=== PATIENT | female | born 1970 | race Two or more races ===

== ENCOUNTER 2020-06-24 08:11 | Outpatient (REF) | payer MEDICARE, MEDICAID, SELFPAY ==
--- NOTE | 2020-06-24 15:25 | MHC.AU.ANR ---
Adult Audiological Evaluation Date of Visit: 06/24/20 Reason for Appointment: Audiological evaluation due to concern for decreased hearing. Ms. Fermin states that she often has to ask for repetition, which frustrates her family. Does patient feel they have a hearing loss?: Yes If Yes, Which Ear?: Both Ears When Was Hearing Difficulty First Noticed?: one year ago Has hearing been tested previously?: No Hearing Handicap Inventory: HHIE SCORE: 8 Based on HHIE score, patient has: No perceived hearing handicap Medical History: Medical History: Headache, High Blood Pressure Medical History (Other): Gallbladder removed in 1992, TMJ Allergies: Penicillin Medication List: Lisinopril Otoscopy: Right Ear: Unremarkable Left Ear: Unremarkable Tympanometry: Tympanometry performed due to: To assess integrity of the middle ear system Right Ear: Normal Middle Ear System (Type A) Left Ear: Normal Middle Ear System (Type A) Hearing Evaluation: Transducer(s) Used: Insert Earphones, Bone Conduction Method: Conventional Audiometry Stimuli Used: Pure Tones Right Ear: Description of Hearing: Normal hearing from 250-8000 Hz. Left Ear: Description of Hearing: Normal hearing from 250-3000 Hz, dipping to a mild conductive hearing loss at 4000 Hz, and rising to normal hearing from 3443-4084 Hs. Air-conduction thresholds at 10-20 dBHL worse in the left ear than the right at 6505-5882 Hz. Speech Recognition Threshold (SRT): Method Used: Monitored Live Voice Stimuli Used: Spondee Words Right Ear: 10 dBHL Left Ear: 10 dBHL Word Discrimination: Method: Recorded Lists Word Lists Used: NU-6 Right Ear: 92% at 50 dBHL Left Ear: 92% at 50 dBHL Recommendations: Audiological re-evaluation in one year to monitor hearing due to asymmetry. Amplification is not warranted at this time. Diagnosis: Primary Diagnosis: H90.12 ConductiveHL, Unilateral Left Ear, W/Unrestricted Contralateral Services Performed: Services Performed: Comprehensive Audiological Evaluation (CPT 02120) Tympanometry (CPT 40366) Signature: Provider: Theresa Melgar, CCC-A
== END 2020-06-24 08:12 | disposition home or self-care (01) ==
LOC: HO.SH 08:11
PROVIDERS: Visit Provider Internal Medicine
DX: H90.12 Conductive hearing loss, unilateral, left ear, with unrestricted hearing on the contralateral side (principal)
CPT/HCPCS: 92557; 92567

== ENCOUNTER 2020-07-02 22:05 | Emergency (ER) | payer MEDICARE, MEDICAID, SELFPAY ==
--- NOTE | 2020-07-02 | ECG_ITS ---
Test Reason : CHEST PAIN Blood Pressure : / mmHG Vent. Rate : 095 BPM Atrial Rate : 095 BPM P-R Int : 130 ms QRS Dur : 094 ms QT Int : 376 ms P-R-T Axes : 048 023 087 degrees QTc Int : 472 ms Normal sinus rhythm Nonspecific ST abnormality Abnormal ECG When compared with ECG of 06-NOV-2018 10:36, Nonspecific T wave abnormality, improved in Anterolateral leads Referred By: Generic ED Physician Electronically Signed By:RAMO WEBB
[2020-07-02 22:08] VITALS: BP 176/103; PULSE 91; RESP 18; TEMP 36.5; O2SAT 99; BMI 27.3
== END 2020-07-02 23:55 | disposition left against medical advice (07) ==
PROVIDERS: Emergency Provider Emergency Medicine; PCP Internal Medicine
DX: R07.9 Chest pain, unspecified (principal)
CPT/HCPCS: 93005; 99283

== ENCOUNTER 2020-08-03 09:30 | Outpatient (REF) | payer MEDICARE, MEDICAID, SELFPAY ==
--- NOTE | ~2020-08-03 | XR_ITS ---
EXAMINATION: XR CERVICAL SPINE CLINICAL INFORMATION: Cervical spondylosis COMPARISON: None TECHNIQUE: 5 views of the cervical spine were obtained. FINDINGS: There are no prevertebral soft tissue or bony abnormalities demonstrated. No compression fractures or subluxations are identified. Alignment is maintained at the atlanto-axial articulation. The disc spaces are preserved. The neural foramina are patent bilaterally No endplate changes are seen. The prevertebral soft tissues are normal. The foramina are patent. XR/XR cervical spine 4V IMPRESSION: Unremarkable cervical spine exam.
== END 2020-08-03 09:31 | disposition home or self-care (01) ==
LOC: HO.XRAY 09:30
PROVIDERS: PCP Internal Medicine; Visit Provider Psychiatry & Neurology Neurology
DX: M47.812 Spondylosis without myelopathy or radiculopathy, cervical region (principal)
CPT/HCPCS: 72050

== ENCOUNTER 2020-08-05 09:08 | Outpatient (REF) | payer MEDICARE, MEDICAID, SELFPAY ==
--- NOTE | ~2020-08-05 | MM_ITS ---
EXAMINATION: MM SCREENING DIGITAL BREAST TOMOSYNTHESIS, BILATERAL CLINICAL INFORMATION: Screening. Asymptomatic. The lifetime risk of breast cancer based on the Tyrer-Cuzick Model is 5.3%. COMPARISON: Mammography: February 04, 2019 and studies dating back to June 26, 2013 TECHNIQUE: Digital breast tomosynthesis is performed in both the craniocaudal and mediolateral oblique views along with computer-aided detection (CAD). Synthesized 2D images are generated from the tomosynthesis. FINDINGS: There are scattered areas of fibroglandular density (ACR BI-RADS breast composition Category b). There are no significant masses, abnormal calcifications, or other abnormalities. MM/MM tomosynthesis screening BI IMPRESSION: There are no significant changes from prior study. ASSESSMENT: BI-RADS 1: Negative RECOMMENDATION: Routine annual mammography screening. This patient's information was entered into a reminder system with a target due date for their next mammogram.
== END 2020-08-05 09:09 | disposition home or self-care (01) ==
LOC: HO.MAMMO 09:08
PROVIDERS: Visit Provider Internal Medicine
DX: Z12.31 Encounter for screening mammogram for malignant neoplasm of breast (principal)
CPT/HCPCS: 77063; 77067

== ENCOUNTER 2020-12-24 09:29 | Emergency (ER) | payer MEDICARE, MEDICAID, SELFPAY ==
--- NOTE | ~2020-12-24 | CT_ITS ---
EXAMINATION: CT ABDOMEN AND PELVIS WITHOUT CONTRAST CLINICAL INFORMATION: Hematuria with bilateral flank pain COMPARISON: March 26, 2013 TECHNIQUE: Multidetector volumetric imaging was performed from the superior aspect of the liver through the pubic symphysis. Sagittal and coronal reformatted images were obtained on the technologist's workstation. This CT examination was performed using dose optimization techniques as appropriate, variously including the following: *Automated exposure control *Adjustment of mA and/or kV according to patient size (this includes techniques or standardized protocols for targeted exams where dose is matched to indication/reason for exam; i.e. extremities or head) *Use of iterative reconstruction technique DLP: 506 mGy-cm FINDINGS: LUNG BASES: The visualized lung bases are unremarkable. No pleural or pericardial effusion. LIVER, GALLBLADDER, AND BILIARY TREE: The liver is normal in size, shape, and attenuation. No focal hepatic lesion or biliary ductal dilatation is present. Gallbladder is not visualized and may be surgically absent. PANCREAS: Unremarkable. SPLEEN: Unremarkable. ADRENAL GLANDS: Unremarkable. KIDNEYS AND URETERS: The kidneys are normal in size, shape, and attenuation. No hydronephrosis, hydroureter, or calculi seen. No perinephric stranding. BLADDER: Unremarkable. GASTROINTESTINAL TRACT: No free air or free fluid is identified. No dilated loops of large or small bowel. No pericolonic inflammatory change. The appendix is visualized and appears unremarkable. ABDOMINAL WALL: No significant hernia is appreciated. LYMPH NODES: No lymphadenopathy appreciated. VASCULAR: Unremarkable. PELVIC VISCERA: Unremarkable. OSSEOUS STRUCTURES: No suspicious destructive bony lesion identified. CT/CT abdomen pelvis wo con IMPRESSION: No evidence of obstructive uropathy. No evidence of ileus or obstruction. No free air or free fluid.
[2020-12-24 09:39] VITALS: BP 151/92; PULSE 75; RESP 19; TEMP 36.6; O2SAT 98; BMI 26.4
[2020-12-24 10:40] VITALS: BP 129/83; PULSE 68; RESP 15; TEMP 36.8; O2SAT 98
--- NOTE | 2020-12-24 10:54 | ED_ITS ---
HPI - Female Genitourinary General Chief complaint: Urogenital-Female Stated complaint: blood in urine Time Seen by Provider: 12/24/20 10:45 Source: patient Limitations: no limitations History of Present Illness HPI Narrative: 49-year-old female who presents emergency department for evaluation hematuria, dysuria and urinary frequency. She states the symptoms started on Monday (3 days prior to evaluation). She states that she has a bur francisca sensation when she urinates, she states she is urinating frequency, she states that after she urinates she feels like she has to urinate again. The patient states that she is also having suprapubic pressure pain which is constant and is 9/10 at its worst. She is having pain in her lower back bilaterally which he states is mild to moderate intensity. She has had associated nausea but no vomiting. She denied fever, chills, weakness, fatigue. The patient states that she had leftover ciprofloxacin from previous urine infection start taking this on Monday she is also taking Pyridium with no relief of her symptoms. Patient states she has had a kidney stone in the past as well. Related Data Previous Rx's Medication Instructions Recorded cephalexin 500 mg capsule 500 mg PO QID 7 Days #28 cap 12/24/20 metoclopramide HCl 10 mg tablet 10 mg PO Q6H PRN #14 tab 12/24/20 (Reglan) phenazopyridine 200 mg tablet 200 mg PO TID PRN 3 Days #9 tab 12/24/20 (Pyridium) Allergies Allergy/AdvReac Type Severity Reaction Status Date / Time Penicillins [PENICILLINS] Allergy Mild RASH Verified 07/02/20 22:13 doxycycline [DOXYCYCLINE] Allergy Unknown DIZZY Verified 07/02/20 22:13 Review of Systems Review of Systems: Yes all other systems are reviewed and are negative [facility] Past Medical History [facility] Narrative: Past medical history: She also has history of urinary tract infections. Social history: She denies tobacco use. She states she occasionally drinks alcohol. She denies drug use. Medical History delivery delivered Cholecystectomy planned HTN (hypertension) Hypothyroid Kidney stone Surgical History History of cholecystectomy Social History Social History Advance Directives: No Advance Directives Information Provided: Yes Patient : No Physical Exam Vital Signs: Vital Signs: Last Vital Signs Temp 98.2 F 12/24/20 10:40 Pulse 68 12/24/20 10:40 Resp 15 12/24/20 10:40 BP 129/83 12/24/20 10:40 Pulse Ox 98 12/24/20 10:40 Body Mass Index 26.4 Const: General: cooperative and no acute distress Orientation/consciousness: oriented to person and oriented to place Limitations: no limitations HENMT: Head: Yes normal to inspection, Yes normocephalic and Yes atraumatic Ears: external ears normal General nose exam: Normal external nose present Face and sinus: Yes normal facial exam Mouth: Normal oral and palatal mucosa present Throat: Yes posterior oropharynx normal Eyes: General: appearance normal, both eyes and all related structures Pupils: Equal, round and reactive pupils present Neck: Neck: Yes normal visual inspection, Yes no lymphadenopathy, Yes trachea midline and Yes supple Chest: Chest palpation & inspection: normal inspection of the chest and normal palpation of entire chest wall Resp: Effort & Inspection: normal respiratory effort and able to speak in complete sentences Auscultation: clear to auscultation bilaterally Cardio: Rate: regular rate Rhythm: regular rhythm Heart sounds: S1 normal heart sound present, S2 normal heart sound present and no murmurs GI: Inspection: Yes normal to inspection Palpation (GI): Soft to palpation, Tenderness to palpation present (GI) suprapubicly (Moderate) and no guarding Auscultation: normal bowel sounds : General: Yes CVA tenderness ([id number] bilateral) Back/Spine/Pelvis: Back: CVA tenderness ([id number] bilateral) Skin: General skin exam: no rashes or lesions noted Neuro: General: oriented to person and oriented to place Cranial nerves: Yes CN's II-XII intact bilaterally and Yes Equal, round and reactive pupils present Cognition (Neuro): normal cognition Motor exam (neuro): 5/5 motor strength present throughout Extrem: General: Yes normal to inspection Psych: Appearance: grossly normal Speech and movement: Normal speech and movement present Affect: normal affect Attitude: cooperative Thought process: Normal thought process present Thought content: Normal thought content present Course Course Course Narrative: 49-year-old female who presents emergency department for evaluation of 3 days of UTI like symptoms including frequency, urgency, dysuria and suprapubic pain. She is also having bilateral flank pain. The patient has a history kidney stones and UTIs in the past. She had leftover ciprofloxacin from previous infection start taking this on Monday and she is also taking Pyridium with no relief for symptoms. I ordered a CT scan of the abdomen pelvis without contrast and a urinalysis. Patient does not want any pain medications at this time. 1307: The patient's CT scan of the abdomen pelvis without IV contrast did not reveal a clear cause for the patient's back pain or hematuria. Urinalysis did reveal 3+ blood, 1+ protein, negative leukocyte esterase and positive nitrates. Microscopic revealed 14 RBCs, 4 WBCs trace bacteria. My impression is the patient has acute cystitis and the bacteria may be resistant to ciprofloxacin and I did discuss this with the patient. The patient was advised to stop her ciprofloxacin and she was started on Keflex (cephalexin) 500 mg pills, 1 pill 3 times a day for 7 days. She was given a dose here in the emergency department. She was also started on Pyridium 200 mg 3 times a day as needed for painful urination. She was discharged home with printed and verbal instructions. MDM - Female Genitourinary Lab Data Labs: Lab Results 12/24/20 Range/Units 11:00 Urine Color DK YELLOW Urine Appearance CLEAR Urine pH 6.0 (5.0-8.0) Ur Specific Nevis 1.010 (1.005-1.025) Urine Protein 1+ H (NEG-TRACE) MG/DL Urine Glucose (UA) NEG (NEG) MG/DL Urine Ketones NEG (NEG) MG/DL Urine Blood 3+ H (NEG) Urine Nitrite POS H (NEG) Ur Leukocyte Esterase NEG (NEG) Urine RBC 10-14 H (0) /HPF Urine WBC 1-4 (0-4) /HPF Ur Squamous Epith Cells TRACE /LPF Urine Bacteria TRACE /LPF Urine Mucus TRACE /LPF Discharge Plan Discharge Clinical Impression: Urinary tract infection Patient Disposition: Home, Self-Care Instructions: Urinary Tract Infection in Women (ED) Additional Instructions: Stop taking your ciprofloxacin Take Keflex (cephalexin) 500 mg pills, 1 pill 4 times a day for 7 days. Also take Pyridium 200 mg pills, 1 pill 3 times a day as needed for painful urination. Take ibuprofen 200 mg pills, 3 pills every 6 hours as needed for pain. Take Tylenol (acetaminophen) 500 mg pills, 2 pills every 4 to 6 hours as needed for pain. Follow-up with your doctor in 2 days. Please return to the emergency department if your symptoms get worse or if you develop any symptoms that are concerning to you. Prescriptions: New cephalexin 500 mg capsule 500 mg PO QID 7 Days Qty: 28 RF: 0 metoclopramide HCl [Reglan] 10 mg tablet 10 mg PO Q6H PRN (Reason: nausea and vomiting) Qty: 14 RF: 0 phenazopyridine [Pyridium] 200 mg tablet 200 mg PO TID PRN (Reason: Burning with urination) 3 Days Qty: 9 RF: 0
[2020-12-24 11:12] LABS: Appearance Urine CLEAR; Color Urine DK YELLOW; Glucose Urine UA NEG (NEG); Leukocyte Esterase Urine NEG (NEG); Nitrite Urine POS (NEG); UACC Culture Trigger YES; Urine Blood 3+ (NEG); Urine Ketones NEG (NEG); Urine Protein 1+ MG/DL (NEG-TRACE)
[2020-12-24 11:36] LABS: Mucus Urine TRACE /LPF; Squamous Epithelial Cell Urine TRACE /LPF
[2020-12-24 11:37] LABS: Bacteria Urine TRACE /LPF
[2020-12-24] MEDS: cephALEXin 500 MG CAPSULE PO (13:22)
--- NOTE | 2020-12-24 13:48 | PC.NURSE ---
Elena presented to the ED via triage from home for evaluation of urinary frequency, urgency, dysuria and hematuria. She denied fevers/chills/ Denies nausea/vomiting. no chest pain. no difficulty breathing. Labs and urine were obtained and pt had CT performed in ED. Pt DiC'd at this time. She was aware that she was discharged however she did not wait in the ED until she was given DC instructions.
== END 2020-12-24 13:48 | disposition home or self-care (01) ==
PROVIDERS: Emergency Provider Emergency Medicine Emergency Medical Services; PCP Internal Medicine
DX: N39.0 Urinary tract infection, site not specified (principal); I10 Essential (primary) hypertension; Z87.442 Personal history of urinary calculi
CPT/HCPCS: 74176; 81001; 87086; 99284

== ENCOUNTER 2021-08-06 09:23 | Outpatient (REF) | payer MEDICARE, MEDICAID, SELFPAY ==
--- NOTE | ~2021-08-06 | MM_ITS ---
EXAMINATION: MM SCREENING DIGITAL BREAST TOMOSYNTHESIS, BILATERAL CLINICAL INFORMATION: Screening. Asymptomatic. The lifetime risk of breast cancer based on the Tyrer-Cuzick Model is 7%. COMPARISON: Mammography: 08/05/2020, 02/04/2019, 01/11/2018 TECHNIQUE: Digital breast tomosynthesis is performed in both the craniocaudal and mediolateral oblique views along with computer-aided detection (CAD). Synthesized 2D images are generated from the tomosynthesis. FINDINGS: There are scattered areas of fibroglandular density (ACR BI-RADS breast composition Category b). There are no significant masses, abnormal calcifications, or other abnormalities. Parenchymal pattern is similar to prior studies. The axilla and skin contours are unremarkable. MM/MM tomosynthesis screening BI IMPRESSION: No mammographic evidence of malignancy. ASSESSMENT: BI-RADS 1: Negative RECOMMENDATION: Routine annual mammography screening. This patient's information was entered into a reminder system with a target due date for their next mammogram.
== END 2021-08-06 09:24 | disposition home or self-care (01) ==
LOC: HO.MAMMO 09:23
PROVIDERS: PCP Internal Medicine; Visit Provider Internal Medicine
DX: Z12.31 Encounter for screening mammogram for malignant neoplasm of breast (principal)
CPT/HCPCS: 77063; 77067

== ENCOUNTER 2022-08-17 08:33 | Outpatient (REF) | payer OTHER, SELFPAY ==
--- NOTE | ~2022-08-17 | MM_ITS ---
EXAMINATION: MM SCREENING DIGITAL BREAST TOMOSYNTHESIS, BILATERAL CLINICAL INFORMATION: Screening. Asymptomatic. The lifetime risk of breast cancer based on the Tyrer-Cuzick Model is 7%. COMPARISON: Mammography: 08/06/2021, 08/05/2020, 02/04/2019 TECHNIQUE: Digital breast tomosynthesis is performed in both the craniocaudal and mediolateral oblique views along with computer-aided detection (CAD). Synthesized 2D images are generated from the tomosynthesis. Additional left CC view is provided. FINDINGS: There are scattered areas of fibroglandular density (ACR BI-RADS breast composition Category b). Parenchymal pattern is similar to prior studies. There is no developing density or architectural abnormality. The axilla and skin contours are unremarkable. No significant changes. There are no significant masses, abnormal calcifications, or other abnormalities. MM/MM tomosynthesis screening BI IMPRESSION: No mammographic evidence of malignancy. ASSESSMENT: BI-RADS 1: Negative RECOMMENDATION: Routine annual mammography screening. This patient's information was entered into a reminder system with a target due date for their next mammogram.
== END 2022-08-17 08:34 | disposition home or self-care (01) ==
LOC: HO.MAMMO 08:33
PROVIDERS: PCP Internal Medicine; Visit Provider Internal Medicine
DX: Z12.31 Encounter for screening mammogram for malignant neoplasm of breast (principal)
CPT/HCPCS: 77063; 77067

== ENCOUNTER 2022-11-07 06:14 | Emergency (ER) | payer OTHER, MEDICAID, SELFPAY ==
[2022-11-07 06:21] VITALS: BP 126/82; PULSE 87; RESP 18; TEMP 36.8; O2SAT 96; BMI 26.9
[2022-11-07 07:05] VITALS: BP 118/78; PULSE 78; RESP 14; O2SAT 96
[2022-11-07] MEDS: 0.9 % Sodium Chloride 1,000 ML 999 ML IV (07:27)
[2022-11-07 07:28] LABS: MANUAL DIFF FLAG NO
[2022-11-07 07:30] LABS: Basophils Percent Auto 0.2 % (0-2); Eosinophils Absolute Auto 0.1 X10*3/uL (0.0-0.4); Eosinophils Percent Auto 0.5 % (0-4); Hematocrit 43.2 % (37.0-47.0); Imm Gran Abs Auto 0.04 X10*3/uL (0.00-0.03); Imm Gran Pct Auto 0.3 % (0.0-0.4); Lymphocytes Absolute Auto 0.8 X10*3/uL (1.2-4.9); Lymphocytes Percent Auto 5.9 % (20-40); Mean Corpuscular HGB Conc 32.4 g/dl (31.0-35.0); Mean Corpuscular Hemoglobin 27.3 pg (27.0-33.0); Mean Corpuscular Volume 84.4 fL (80.0-98.0); Mean Platelet Volume 11.5 fL (9.4-12.3); Monocytes Absolute Auto 0.6 X10*3/uL (0.1-1.2); Monocytes Percent Auto 4.8 % (2-11); Neutrophils Absolute Auto 11.6 x10*3/uL (2.0-8.3); Neutrophils Percent Auto 88.3 % (45-73); Platelet Count 205 X10*3/uL (160-400); Red Blood Count 5.12 X10*6/uL (4.20-5.50); Red Cell Distribution Width 13.5 % (11.0-16.0); White Blood Count 13.2 X10*3/uL (4.8-10.8)
[2022-11-07] MEDS: diphenhydrAMINE HCL 50 MG/ML VIAL 25 MG IVPUSH (07:30)
[2022-11-07] MEDS: Famotidine/PF 20 MG/2 ML VIAL IVPUSH (07:30)
[2022-11-07] MEDS: Metoclopramide HCl 10 MG/2 ML VIAL IVPUSH (07:30)
--- NOTE | 2022-11-07 07:33 | ED.NAVMDI ---
HPI - Nausea/Vomiting/Diarrhea General Chief complaint: Nausea/Vomiting/Diarrhea Stated complaint: Diarrhea Time Seen by Provider: 11/07/22 07:15 Source: patient Mode of arrival: EMS Limitations: no limitations History of Present Illness HPI Narrative: 51-year-old female past medical history significant for hypertension cholecystectomy hypothyroidism presents emergency department complaining of diarrhea since last night. She denies any new foods or new medications she denies any recent antibiotic use she states her diarrhea is nonbloody and not black. She denies any fevers chills denies any nausea vomiting patient denies any falls or injuries she complains of some vague abdominal pain and states that she has not drank anything all night says she feels like her urine is concentrated. elicited complaint: diarrhea Pertinent past history: anorexia Related Data Previous Rx's Medication Instructions Recorded cephalexin 500 mg capsule 500 mg PO QID 7 days #28 caps 12/24/20 metoclopramide HCl 10 mg tablet 10 mg PO Q6H PRN nausea and 12/24/20 (Reglan) vomiting #14 tabs phenazopyridine 200 mg tablet 200 mg PO TID PRN Burning with 12/24/20 (Pyridium) urination 3 days #9 tabs Allergies Allergy/AdvReac Type Severity Reaction Status Date / Time Penicillins [PENICILLINS] Allergy Mild RASH Verified 07/02/20 22:13 doxycycline [DOXYCYCLINE] Allergy Unknown DIZZY Verified 07/02/20 22:13 Review of Systems Review of Systems: Review of systems: General: Patient denies any fever chills recent illness or falls Musculoskeletal: Denies back pain or body aches or other injuries HEENT: denies headache, runny nose, ear pain Respiratory: denies shortness of breath, cough Cardiovascular: no chest pain or palpitations : denies dysuria, frequency Abdomen: diarrheano nausea vomiting denies abdominal pain Extremities: no swelling, no pain Skin: no diaphoresis Yes all other systems are reviewed and are negative PMFSH Past Medical History Medical History delivery delivered Cholecystectomy planned HTN (hypertension) Hypothyroid Kidney stone Surgical History History of cholecystectomy Social History Social History Advance Directives: No Advance Directives Information Provided: Yes Physical Exam Vital Signs: Vital Signs: Last Vital Signs Temp 98.4 F 11/07/22 08:42 Pulse 76 11/07/22 08:42 Resp 16 11/07/22 08:42 BP 131/78 11/07/22 08:42 Pulse Ox 98 11/07/22 08:42 O2 Del Method Room Air 11/07/22 08:42 BMI result Body Mass Index 26.9 General: Well-appearing well-nourished in no signs of distress HEENT: Normocephalic atraumatic Neck: No signs of JVD, no masses no tenderness or lymphadenopathy Cardiovascular: Regular rate and rhythm Respiratory: Clear to auscultation bilaterally Abdomen: Soft nontender no masses rectal exam deferred Extremities: Normal pedal pulses no signs of edema Skin: Dry warm no rashes Back: No tenderness full ROM Course Course Course Narrative: 930 Patient looks well in the room no more diarrhea here. Labs are all okay I will send home with PCP follow up. Medications Administered Discontinued Medications Generic Name Dose Route Start Last Admin Trade Name Kinq PRN Reason Stop Dose Admin Diphenhydramine HCl 25 mg 11/07/22 07:14 11/07/22 07:30 Diphenhydramine Hcl 50 Mg/Ml Vial IVPUSH 11/07/22 07:15 25 mg ONCE ONE Administration Famotidine 20 mg 11/07/22 07:14 11/07/22 07:30 Famotidine/Pf 20 Mg/2 Ml Vial IVPUSH 11/07/22 07:15 20 mg ONCE ONE Administration Sodium Chloride 1,000 mls @ 999 mls/hr 11/07/22 07:15 11/07/22 08:40 Ns IV 11/07/22 08:15 Infused .Q1H1M RIC Infusion Metoclopramide HCl 10 mg 11/07/22 07:14 11/07/22 07:30 Metoclopramide Hcl 10 Mg/2 Ml Vial IVPUSH 11/07/22 07:15 10 mg ONCE ONE Administration Medical Decision Making Medical Decision Making [facility] Narrative: Patient here with diarrhea bloody I [place] time she has been on antibiotics recently do not think this is related to C diff colitis. Patient looks otherwise well the patient's fluids ordered some Reglan and Benadryl as well I will check labs and reassess patient. I do not think she has a surgical abdomen is any reason for CT scan Differential Diagnosis Differential Diagnoses: The differential diagnosis associated with the presentation includes Enteritis C diff colitis infectious or vomiting or light dehydration and vomiting benign abdominal exam I do not think this is a surgical abdomen Admission/Observation Consideration of admission/observation: Escalation of care including admission/observation considered Patient has well as benign abdomen and has isolated diarrhea I will check for dehydration Lab Data MDM Lab Attestation statement: I reviewed the patient's lab results. 11/07/22 07:23 11/07/22 07:23 Labs: Lab Results 11/07/22 Range/Units 07:23 WBC 13.2 H (4.8-10.8) X10*3/uL RBC 5.12 (4.20-5.50) X10*6/uL Hgb 14.0 (12.0-16.0) g/dl Hct 43.2 (37.0-47.0) % MCV 84.4 (80.0-98.0) fL MCH 27.3 (27.0-33.0) pg MCHC 32.4 (31.0-35.0) g/dl RDW 13.5 (11.0-16.0) % Plt Count 205 (160-400) X10*3/uL MPV 11.5 (9.4-12.3) fL Immature Gran % (Auto) 0.3 (0.0-0.4) % Neut % (Auto) 88.3 H (45-73) % Lymph % (Auto) 5.9 L (20-40) % Davis % (Auto) 4.8 (2-11) % Eos % (Auto) 0.5 (0-4) % Baso % (Auto) 0.2 (0-2) % Lymph # (Auto) 0.8 L (1.2-4.9) X10*3/uL Davis # (Auto) 0.6 (0.1-1.2) X10*3/uL Eos # (Auto) 0.1 (0.0-0.4) X10*3/uL Baso # (Auto) 0.0 (0.0-0.2) X10*3/uL Abs Immat Gran (auto) 0.04 H (0.00-0.03) X10*3/uL Absolute Neuts (auto) 11.6 H (2.0-8.3) x10*3/uL Absolute Nucleated RBC 0.000 (0.0-0.012) X10*3/uL Nucleated RBC % (auto) 0.0 (0.0-0.2) /100WBC Sodium 140 (135-145) mmol/L Potassium 4.2 (3.3-5.1) mmol/L Chloride 109 H (96-108) mmol/L Carbon Dioxide 24 (22-29) mmol/L Anion Gap 11 L (12-20) BUN 12 (9-16) mg/dL Creatinine 0.74 (0.5-1.4) mg/dL Estim Creat Clear Calc 72.6 Estimated GFR > 60 Random Glucose 102 (60-115) mg/dL Calcium 10.0 (8.4-10.2) mg/dL Total Bilirubin 0.5 (0.0-1.0) mg/dL Direct Bilirubin 0.2 (0.0-0.5) mg/dL AST 17 (5-31) U/L ALT 17 (0-31) U/L Alkaline Phosphatase 85 (39-117) U/L Total Protein 7.2 (6.5-8.0) g/dL Albumin 4.4 (3.5-5.0) g/dL Lipase 21 (8-78) U/L Independent Historian Clinical information obtained from an independent historian. History obtained from or confirmed by: Other External Record Review External record reviewed: Inpatient record and Office record Chronic Conditions Patient?s care impacted by: Hypertension Core Measures AMI core measures followed: No Discharge Plan Discharge Clinical Impression: Dehydration, Diarrhea Patient Disposition: Home, Self-Care Instructions: Dehydration (ED), Acute Diarrhea (ED) Additional Instructions: You were seen today for diarrhea. You had labs and were given some medications. Which were all normal Please call to follow up with your doctor. Prescriptions: No Action cephalexin 500 mg capsule 500 mg PO QID 7 Days Qty: 28 0RF metoclopramide HCl [Reglan] 10 mg tablet 10 mg PO Q6H PRN (Reason: nausea and vomiting) Qty: 14 0RF phenazopyridine [Pyridium] 200 mg tablet 200 mg PO TID PRN (Reason: Burning with urination) 3 Days Qty: 9 0RF
[2022-11-07 07:46] LABS: Alanine Aminotransferase 17 U/L (0-31); Albumin Level 4.4 g/dL (3.5-5.0); Alkaline Phosphatase 85 U/L (39-117); Anion Gap 11 (12-20); Aspartate Amino Transferase 17 U/L (5-31); Bilirubin Direct 0.2 mg/dL (0.0-0.5); Bilirubin Total 0.5 mg/dL (0.0-1.0); Blood Urea Nitrogen 12 mg/dL (9-16); Carbon Dioxide 24 mmol/L (22-29); Chloride 109 mmol/L (96-108); Creatinine Clr Calc Pharmacy 72.6; Estimated Glomerular Filt Rate > 60; Glucose Random 102 mg/dL (60-115); Lipase 21 U/L (8-78); Potassium 4.2 mmol/L (3.3-5.1); Sodium 140 mmol/L (135-145); Total Protein 7.2 g/dL (6.5-8.0)
--- NOTE | 2022-11-07 07:57 | PC.NURSE ---
alert and oriented, respirations even and unlabored. resting quietly in room. iv established, labs drawn and sent. medicated per the MAR with fluids infusing at this time. family at bedside, call blackmon within reach.
[2022-11-07 08:42] VITALS: BP 131/78; PULSE 76; RESP 16; TEMP 36.9; O2SAT 98
--- NOTE | 2022-11-07 08:42 | PC.NURSE ---
fluids finished infusing, pt reports improvement in symptoms at this time.
== END 2022-11-07 09:42 | disposition home or self-care (01) ==
PROVIDERS: Emergency Provider Student in an Organized Health Care Education/Training Program; PCP Internal Medicine
DX: E86.0 Dehydration (principal); R19.7 Diarrhea, unspecified; R11.2 Nausea with vomiting, unspecified; Z79.899 Other long term (current) drug therapy
CPT/HCPCS: 36415; 80048; 80076; 83690; 85025; 96361; 96374; 96375; 99284; J1200; J2765

== ENCOUNTER 2023-02-17 17:56 | Emergency (ER) | payer OTHER, MEDICAID, SELFPAY ==
--- NOTE | ~2023-02-17 | XR_ITS ---
EXAMINATION: XR CHEST CLINICAL INFORMATION: Chest pain COMPARISON: 11/06/2018 TECHNIQUE: 2 views of the chest were obtained. FINDINGS: Lungs are well-inflated and clear. Trachea is midline in position. No interstitial disease, consolidation or mass. No pleural effusion or pneumothorax. Cardiac silhouette and pulmonary vessels are normal in size. The mediastinum and jones have normal contour. The visualized bones and upper abdomen are unremarkable. XR/XR chest 2V IMPRESSION: No acute cardiopulmonary abnormality.
--- NOTE | 2023-02-17 18:08 | ECG_ITS ---
Test Reason : CHEST PAIN Blood Pressure : / mmHG Vent. Rate : 087 BPM Atrial Rate : 087 BPM P-R Int : 120 ms QRS Dur : 092 ms QT Int : 356 ms P-R-T Axes : 048 015 079 degrees QTc Int : 428 ms Normal sinus rhythm Nonspecific ST and T wave abnormality Abnormal ECG When compared with ECG of 02-JUL-2020 22:11, Nonspecific T wave abnormality, worse in Lateral leads Referred By: Maggie Gleason Electronically Signed By:BENOIT HIRSCH MD
[2023-02-17 18:23] VITALS: BP 159/100; PULSE 86; RESP 18; TEMP 36.7; O2SAT 98; BMI 26.7
--- NOTE | 2023-02-17 18:24 | ED.GENADULT ---
HPI - General Adult General Chief complaint: Chest Pain Stated complaint: Chest pain/High blood pressure Time Seen by Provider: 02/17/23 21:29 Source: patient Mode of arrival: ambulatory Limitations: no limitations History of Present Illness HPI narrative: Patient with history of hypertension on lisinopril for years takes 10 mg daily noted chest heaviness for last 2 -3 days and checked her blood pressure was 159/100 on arrival no palpitation no chest pain at this time no shortness of breath patient your blood pressure is 120/80 no recent caffeine intake no use of any NSAID Related Data Previous Rx's Medication Instructions Recorded cephalexin 500 mg capsule 500 mg PO QID 7 days #28 caps 12/24/20 metoclopramide HCl 10 mg tablet 10 mg PO Q6H PRN nausea and 12/24/20 (Reglan) vomiting #14 tabs phenazopyridine 200 mg tablet 200 mg PO TID PRN Burning with 12/24/20 (Pyridium) urination 3 days #9 tabs lisinopril 20 mg tablet 20 mg PO DAILY #30 tabs 02/17/23 Allergies Allergy/AdvReac Type Severity Reaction Status Date / Time Penicillins [PENICILLINS] Allergy Mild RASH Verified 07/02/20 22:13 doxycycline [DOXYCYCLINE] Allergy Unknown DIZZY Verified 07/02/20 22:13 Review of Systems Review of Systems: Yes all other systems are reviewed and are negative [facility] Past Medical History Medical History Hypothyroid Kidney stone delivery delivered Cholecystectomy planned HTN (hypertension) Surgical History History of cholecystectomy Social History Social History Advance Directives: No Advance Directives Information Provided: No Physical Exam ED Vital Signs: Vital Signs - 24 hr 02/17/23 18:23 02/17/23 21:58 02/17/23 22:31 Temperature 98.0 F 98.1 F Pulse Rate 86 90 87 Respiratory Rate 18 13 17 Blood Pressure 159/100 H 158/109 H 154/97 H Pulse Oximetry 98 100 98 Oxygen Delivery Method Room Air Room Air Room Air BMI result Body Mass Index 26.7 Appearance: Alert. Oriented X3. No acute distress. Eyes: PERRLA, No Nystagmus ENT: Pharynx normal. Oral Mucosa moist Neck: Normal inspection. Neck supple. CVS: Normal heart rate and rhythm. Pulses normal. Respiratory: No respiratory distress. Equal air entry bilateral, no wheezing/rales/rhonchi Abdomen: Soft and nontender. Bowel sounds are present, Skin: Skin warm and dry. Normal skin color. Normal skin turgor. Extremities: No lower extremity edema. No calf tenderness Neuro: Oriented X 3. Course Course Course Narrative: RME performed by Maggie Gleason PA-C. Patient is a 52 year old assigned female at presenting to the emergency department with right sided chest pain that is worse with eating. Labs, imaging, and swabs ordered. Patient placed back in the waiting room pending room availability and results. Patient seen and dispositioned by Dr. George. Medications Administered Discontinued Medications Generic Name Dose Route Start Last Admin Trade Name Freq PRN Reason Stop Dose Admin Lisinopril 10 mg 02/17/23 22:01 02/17/23 22:30 Lisinopril 10 Mg Tablet PO 02/17/23 22:02 10 mg ONCE ONE Administration Protocol Medical Decision Making Medical Decision Making [facility] Narrative: Patient with hypertension elevated hypertension no secondary cause identified patient taking lisinopril 10 mg for years will increase the dose to 20 mg EKG without any ischemic changes troponin is negative Lab Data [facility] Lab Attestation statement: I reviewed the patient's lab results. 02/17/23 19:03 02/17/23 19:03 Labs: Lab Results 02/17/23 02/17/23 Range/Units 19:03 19:38 WBC 7.2 (4.8-10.8) X10*3/uL RBC 4.98 (4.20-5.50) X10*6/uL Hgb 13.4 (12.0-16.0) g/dl Hct 41.5 (37.0-47.0) % MCV 83.3 (80.0-98.0) fL MCH 26.9 L (27.0-33.0) pg MCHC 32.3 (31.0-35.0) g/dl RDW 13.6 (11.0-16.0) % Plt Count 217 (160-400) X10*3/uL MPV 11.2 (9.4-12.3) fL Immature Gran % (Auto) 0.4 (0.0-0.4) % Neut % (Auto) 73.2 H (45-73) % Lymph % (Auto) 18.1 L (20-40) % [place] % (Auto) 7.2 (2-11) % Eos % (Auto) 0.4 (0-4) % Baso % (Auto) 0.7 (0-2) % Lymph # (Auto) 1.3 (1.2-4.9) X10*3/uL [place] # (Auto) 0.5 (0.1-1.2) X10*3/uL Eos # (Auto) 0.0 (0.0-0.4) X10*3/uL Baso # (Auto) 0.1 (0.0-0.2) X10*3/uL Abs Immat Gran (auto) 0.03 (0.00-0.03) X10*3/uL Absolute Neuts (auto) 5.3 (2.0-8.3) x10*3/uL Absolute Nucleated RBC 0.000 (0.0-0.012) X10*3/uL Nucleated RBC % (auto) 0.0 (0.0-0.2) /100WBC PT 10.8 L (11.1-13.3) SEC INR 0.9 (0.9-1.1) APTT 34.0 (26.0-36.4) SEC Sodium 140 (135-145) mmol/L Potassium 3.9 (3.3-5.1) mmol/L Chloride 107 (96-108) mmol/L Carbon Dioxide 26 (22-29) mmol/L Anion Gap 11 L (12-20) BUN 12 (9-16) mg/dL Creatinine 0.70 (0.5-1.4) mg/dL Estim Creat Clear Calc 78.7 Estimated GFR > 60 Random Glucose 98 (60-115) mg/dL Calcium 9.4 (8.4-10.2) mg/dL Magnesium 2.3 (1.6-2.6) mg/dL Total Bilirubin 0.4 (0.0-1.0) mg/dL AST 19 (5-31) U/L ALT 19 (0-31) U/L Alkaline Phosphatase 90 (39-117) U/L Troponin I High Sens < 2.7 (<3.5-17.0) ng/L Total Protein 7.2 (6.5-8.0) g/dL Albumin 4.4 (3.5-5.0) g/dL Urine Color Yellow Urine Appearance Clear Urine pH 5.0 (5.0-9.0) Ur Specific [place] 1.020 (1.005-1.025) Urine Protein Negative (Neg-Trace) mg/dL Urine Glucose (UA) Negative (Negative) mg/dL Urine Ketones Negative (Negative) mg/dL Urine Blood Negative (Negative) Urine Nitrite Negative (Negative) Ur Leukocyte Esterase Negative (Negative) Influenza Type A (PCR) NEGATIVE (Negative) Influenza Type B (PCR) NEGATIVE (Negative) RSV RNA Qual (PCR) NEGATIVE (Negative) SARS-CoV-2 RNA (RT-PCR) NEGATIVE (Negative) Independent Interpretation I performed an independent interpretation of an: EKG Interpretation: Normal sinus rhythm heart rate 87 beats per minute normal axis no acute ST-T changes no acute ischemic Discharge Plan Discharge Clinical Impression: Chest pain, Hypertension Patient Disposition: Home, Self-Care Instructions: Chest Pain (ED), Chronic Hypertension (ED) Additional Instructions: Decrease salt intake Increase the dose of lisinopril to 20 mg daily Normal blood pressure should be less than 130/85 Follow with PCP Prescriptions: New lisinopril 20 mg tablet 20 mg PO DAILY Qty: 30 0RF No Action cephalexin 500 mg capsule 500 mg PO QID 7 Days Qty: 28 0RF metoclopramide HCl [Reglan] 10 mg tablet 10 mg PO Q6H PRN (Reason: nausea and vomiting) Qty: 14 0RF phenazopyridine [Pyridium] 200 mg tablet 200 mg PO TID PRN (Reason: Burning with urination) 3 Days Qty: 9 0RF Interventions: ED Discharge Assessment Last Done: 02/17/23 22:36 Discharge Date/Time: 02/17/23 22:36
[2023-02-17 19:09] LABS: MANUAL DIFF FLAG NO
--- NOTE | 2023-02-17 19:09 | MHC.EDTECH ---
Patient ekg taken and was read by Provider ,blood drawn ,rsv/covid swab collected and sent to lab .
[2023-02-17 19:10] LABS: Basophils Absolute Auto 0.1 X10*3/uL (0.0-0.2); Basophils Percent Auto 0.7 % (0-2); Eosinophils Percent Auto 0.4 % (0-4); Hematocrit 41.5 % (37.0-47.0); Hemoglobin 13.4 g/dl (12.0-16.0); Imm Gran Abs Auto 0.03 X10*3/uL (0.00-0.03); Imm Gran Pct Auto 0.4 % (0.0-0.4); Lymphocytes Absolute Auto 1.3 X10*3/uL (1.2-4.9); Lymphocytes Percent Auto 18.1 % (20-40); Mean Corpuscular HGB Conc 32.3 g/dl (31.0-35.0); Mean Corpuscular Hemoglobin 26.9 pg (27.0-33.0); Mean Corpuscular Volume 83.3 fL (80.0-98.0); Mean Platelet Volume 11.2 fL (9.4-12.3); Monocytes Absolute Auto 0.5 X10*3/uL (0.1-1.2); Monocytes Percent Auto 7.2 % (2-11); Neutrophils Absolute Auto 5.3 x10*3/uL (2.0-8.3); Neutrophils Percent Auto 73.2 % (45-73); Platelet Count 217 X10*3/uL (160-400); Red Blood Count 4.98 X10*6/uL (4.20-5.50); Red Cell Distribution Width 13.6 % (11.0-16.0); White Blood Count 7.2 X10*3/uL (4.8-10.8)
[2023-02-17 19:17] LABS: INTERNATIONAL NORM RATIO 0.9 (0.9-1.1); Prothrombin Time 10.8 SEC (11.1-13.3)
[2023-02-17 19:32] LABS: Alanine Aminotransferase 19 U/L (0-31); Albumin Level 4.4 g/dL (3.5-5.0); Alkaline Phosphatase 90 U/L (39-117); Anion Gap 11 (12-20); Aspartate Amino Transferase 19 U/L (5-31); Bilirubin Total 0.4 mg/dL (0.0-1.0); Blood Urea Nitrogen 12 mg/dL (9-16); Calcium 9.4 mg/dL (8.4-10.2); Carbon Dioxide 26 mmol/L (22-29); Chloride 107 mmol/L (96-108); Creatinine Clr Calc Pharmacy 78.7; Estimated Glomerular Filt Rate > 60; Glucose Random 98 mg/dL (60-115); Magnesium 2.3 mg/dL (1.6-2.6); Potassium 3.9 mmol/L (3.3-5.1); Sodium 140 mmol/L (135-145); Total Protein 7.2 g/dL (6.5-8.0)
[2023-02-17 19:40] LABS: Troponin-I High Sensitivity < 2.7 ng/L (<3.5-17.0)
[2023-02-17 19:47] LABS: Influenza A PCR NEGATIVE (Negative); Influenza B PCR NEGATIVE (Negative); Resp Syncy Virus RNA Qual PCR NEGATIVE (Negative); SARS COV2 PCR INHOUSE NEGATIVE (Negative)
[2023-02-17 20:02] LABS: Appearance Urine Clear; Color Urine Yellow; Glucose Urine UA Negative (Negative); Leukocyte Esterase Urine Negative (Negative); Nitrite Urine Negative (Negative); Urine Blood Negative (Negative); Urine Ketones Negative (Negative); Urine Protein Negative (Neg-Trace)
[2023-02-17 21:58] VITALS: BP 158/109; PULSE 90; RESP 13; TEMP 36.7; O2SAT 100
[2023-02-17] MEDS: lisinopriL 10 MG TABLET PO (22:30)
[2023-02-17 22:31] VITALS: BP 154/97; PULSE 87; RESP 17; O2SAT 98
== END 2023-02-17 22:36 | disposition home or self-care (01) ==
PROVIDERS: Physician Assistant Medical; Emergency Provider Internal Medicine; PCP Internal Medicine
DX: R07.9 Chest pain, unspecified (principal); I10 Essential (primary) hypertension; Z20.822 Contact with and (suspected) exposure to COVID-19; Z20.828 Contact with and (suspected) exposure to other viral communicable diseases; Z79.899 Other long term (current) drug therapy
CPT/HCPCS: 0241U; 71046; 80053; 81003; 83735; 84484; 85025; 85610; 85730; 93005; 99283; 99284

== ENCOUNTER → 2023-02-17 18:08 | Outpatient (BNV) | payer OTHER, MEDICAID, SELFPAY | PROVIDERS: Emergency Provider Internal Medicine; PCP Internal Medicine; Visit Provider Internal Medicine Cardiovascular Disease | DX: R07.9 Chest pain, unspecified (principal) | CPT/HCPCS: 93010 ==

== ENCOUNTER 2023-08-21 13:22 | Outpatient (REF) | payer OTHER, MEDICAID, SELFPAY | END 2023-08-21 13:23 | disposition home or self-care (01) | LOC: HO.MAMMO 13:22 | PROVIDERS: PCP Internal Medicine; Visit Provider Internal Medicine | DX: Z12.31 Encounter for screening mammogram for malignant neoplasm of breast (principal) | CPT/HCPCS: 77063; 77067 ==

== ENCOUNTER → 2023-08-21 14:15 | Outpatient (BNV) | payer OTHER, MEDICAID, SELFPAY | PROVIDERS: PCP Internal Medicine; Visit Provider Radiology Diagnostic Radiology | DX: Z12.31 Encounter for screening mammogram for malignant neoplasm of breast (principal) | CPT/HCPCS: 77063; 77067 ==

== ENCOUNTER 2023-09-25 13:34 | Outpatient (REF) | payer MEDICARE, SELFPAY | END 2023-09-25 13:35 | disposition home or self-care (01) | LOC: HO.XRAY 13:34 | PROVIDERS: PCP Internal Medicine; Visit Provider Nurse Practitioner Family | DX: Z13.89 Encounter for screening for other disorder (principal) ==

== ENCOUNTER 2023-09-25 13:34 | Outpatient (AMB) | payer OTHER, MEDICAID, SELFPAY ==
--- NOTE | 2023-09-25 13:48 | MHC.OFFVIS ---
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 Patient denies any past or recent trauma, injury, or falls. Neck pain is axial and also extends to both shoulder and upper back with movements, rotations, bending or extension. She also reports widespread body pain especially upper back, neck and shoulders. Pain is constant and is rated at 7-8/10. She reports pain negatively affects her daily functioning, ADLs, mobility, sleep and social interactions. Reports increased migraine headaches with significant neck pain. She takes Fiorecet for headaches but has not tried any migraine prophylaxis. Patient is aware of her migraine triggers and tries to avoid them. Patient has been managing pain with meloxicam with minimal pain relief. Patient denies any previous spine or joint surgery or injections. Patient has pending Rheumatology evaluation. Patient denies any previous physical or chiropractic therapy, massage, acupuncture, CBT therapy, aquatherapy, or TENS unit. She is interested to pursue physical therapy as initial steps. Denies any fever, chills, infection, rash, chest pain, shortness of breath, dizziness, visual disturbances, weight loss, weakness, gait instability, bladder or bowel dysfunction or saddle anesthesia. Location: Neck pain, radiates to bilateral shoulders and back; widespread body pain Duration: Chronic pain for many years Characteristics of symptom or complaint: Aching, squeezing, tight, heavy, pressure Aggravating or associated factors: Sitting, movements, ADLs, sleep Relieving factors: Rest, meloxicam Treatment: None [facility] Medical History (Updated 09/25/23 @ 14:23 by MARY Juarez) Fibromyalgia Migraines Neck mass Anxiety GERD (gastroesophageal reflux disease) TMJ (temporomandibular joint syndrome) Carpal tunnel syndrome of left wrist Gastritis Fatty liver disease, nonalcoholic Hypothyroid Kidney stone delivery delivered Cholecystectomy planned HTN (hypertension) Surgical History (Updated 09/25/23 @ 14:02 by Rica Shrestha) Hx of tubal ligation Hx of section History of cholecystectomy Social History (Updated 09/25/23 @ 13:56 by Rica Shrestha) Alcohol intake: current Alcohol intake frequency: holidays/special occasions only Patient Tobacco Use Status: Former Tobacco user Review of Systems Const All systems reviewed & are unremarkable except as noted in HPI and below Reports as per HPI, Denies body aches, Denies chills, Reports difficulty sleeping, Reports fatigue, Denies fever(s), Denies frequent falls, Reports headache(s), Denies malaise, Denies night sweats and Denies weakness ENT Reports headache(s) Neuro Denies frequent falls, Reports headache(s) and Denies weakness Endo Reports fatigue Physical Exam Vital Signs: Last Vital Signs Pulse 70 09/25/23 13:52 BP 132/78 09/25/23 13:52 Pulse Ox 99 09/25/23 13:52 Oxygen Delivery Method Room Air 09/25/23 13:52 BMI result Body Mass Index 26.1 General: Appears afebrile. Alert and oriented. Mood and affect appropriate. Follows and participates in conversation appropriately. Respiratory effort is unlabored. No cough. No nasal discharge. Able to transition from sit to stand unassisted. Ambulates with bilaterally normal heel strike and toe off. Neck Neck: Yes normal visual inspection, Yes no lymphadenopathy, Yes supple, No anterior neck swelling, Yes no JVD, No prominent supraclavicular fat pad and No prominent dorsocervical fat pad Back/Spine/Pelvis Cervical Spine: cervical ROM normal (mildly limited on the left), cervical muscular tenderness, pain with cervical ROM, No Cervical spine scars present, cervical spasm, No Cervical spine tenderness and No step off deformity Thoracic/Lumbar Spine: No thoracic and lumbar spine normal to inspection, No Thoracic/lumbar spine scar(s), Lasegue's sign negative, straight leg raise negative bilaterally, pain with thoraco-lumbar ROM, paraspinal muscle tenderness, No thoracic spinal tenderness and lumbar spinal tenderness at L4 and at L5 Sacroiliac joints: bilaterally tender to palpation Extrem General: Yes capillary refill normal, Yes no clubbing, cyanosis or edema and Yes no calf tenderness Results Reviewed Results Reviewed: XR CERVICAL SPINE 08/03/20 CLINICAL INFORMATION: Cervical spondylosis FINDINGS: There are no prevertebral soft tissue or bony abnormalities demonstrated. No compression fractures or subluxations are identified. Alignment is maintained at the atlanto-axial articulation. The disc spaces are preserved. The neural foramina are patent bilaterally No endplate changes are seen. The prevertebral soft tissues are normal. The foramina are patent. IMPRESSION: Unremarkable cervical spine exam. Assessment & Plan Assessment & Plan (1) Chronic migraine without aura: Code(s): G43.709 - Chronic migraine without aura, not intractable, without status migrainosus Category: Medical (2) Fibromyalgia: Code(s): M79.7 - Fibromyalgia Category: Medical (3) Cervicalgia: Code(s): M54.2 - Cervicalgia Category: Medical (4) Mid back pain: Code(s): M54.9 - Dorsalgia, unspecified Category: Medical (5) Myofascial muscle pain: Code(s): M79.18 - Myalgia, other site Category: Medical Plan Cervical and thoracic spine imaging to assess degree of degenerative changes, any subluxation, listhesis, compression fractures or pars defects. Recommend formal physical therapy neck pain with myofascial and muscle stiffness. Script provided today. Script for provided for magnesium and riboflavin for migraine prophylaxis. Side effects and precautions discussed with patient. Continue daily physical activity as tolerated, adequate hydration, good posture, consider CBT and aquatherapy as well as acupuncture therapy. Follow-up in 1-2 months to see response to physical therapy, if no response to physical therapy will consider further interventional strategy. Orders: Orders XR cervical spine 3V Today M54.2 - Cervicalgia XR thoracic spine 3V Today M54.9 - Dorsalgia, unspecified PT Evaluation and Treatment 09/25/23 M54.2 - Cervicalgia, M54.9 - Dorsalgia, unspecified, M79.18 - Myalgia, other site, M79.7 - Fibromyalgia Medications: New gabapentin 300 mg PO TID 30 days 90 caps 0RF pain G43.709 - Chronic migraine without aura, not intractable, without status migrainosus, M79.7 - Fibromyalgia magnesium glycinate 200 mg (2 x 100 mg) PO DAILY 30 days 60 tabs 0RF migraines headaches G43.709 - Chronic migraine without aura, not intractable, without status migrainosus riboflavin (vitamin B2) 400 mg PO DAILY 30 days 30 tabs 0RF migraine headaches G43.709 - Chronic migraine without aura, not intractable, without status migrainosus Coding Level of Care Code New Pt Level 4 (10635) Diagnoses Chronic migraine without aura G43.709 Fibromyalgia M79.7 Cervicalgia M54.2 Mid back pain M54.9 Myofascial muscle pain M79.18
[2023-09-25 13:52] VITALS: BP 132/78; PULSE 70; O2SAT 99; BMI 26.1
== END 2023-09-25 15:09 | disposition home or self-care (01) ==
PROVIDERS: PCP Internal Medicine; Visit Provider Nurse Practitioner Family
DX: G43.709 Chronic migraine without aura, not intractable, without status migrainosus (principal); M79.7 Fibromyalgia; M54.2 Cervicalgia; M54.9 Dorsalgia, unspecified; M79.18 Myalgia, other site
CPT/HCPCS: 99204

== ENCOUNTER 2023-09-26 11:25 | Outpatient (REF) | payer MEDICARE, SELFPAY ==
--- NOTE | ~2023-09-26 | XR_ITS ---
EXAMINATION: XR CERVICAL SPINE XR THORACIC SPINE CLINICAL INFORMATION: Cervicalgia, dorsalgia, patient reports upper back pain. COMPARISON: X-ray cervical spine July 2020 TECHNIQUE: 3 views of cervical spine 2 views of the dorsal spine. FINDINGS: CERVICAL SPINE: Vertebral bodies normally aligned with normal height. Disc spaces and facets normal. Surrounding soft tissues and bone normal. THORACIC SPINE: Vertebral bodies normally aligned with normal height. Minimal endplate osteophytes in the midportion of the dorsal spine indicative of minimal spondylosis. No fracture or bone lesion. Surrounding bone and soft tissues are normal. XR/XR thoracic spine 3V IMPRESSION: 1. Cervical spine normal. 2. Minimal spondylosis of the dorsal spine.
--- NOTE | ~2023-09-26 | XR_ITS ---
EXAMINATION: XR CERVICAL SPINE XR THORACIC SPINE CLINICAL INFORMATION: Cervicalgia, dorsalgia, patient reports upper back pain. COMPARISON: X-ray cervical spine July 2020 TECHNIQUE: 3 views of cervical spine 2 views of the dorsal spine. FINDINGS: CERVICAL SPINE: Vertebral bodies normally aligned with normal height. Disc spaces and facets normal. Surrounding soft tissues and bone normal. THORACIC SPINE: Vertebral bodies normally aligned with normal height. Minimal endplate osteophytes in the midportion of the dorsal spine indicative of minimal spondylosis. No fracture or bone lesion. Surrounding bone and soft tissues are normal. XR/XR cervical spine 3V IMPRESSION: 1. Cervical spine normal. 2. Minimal spondylosis of the dorsal spine.
== END 2023-09-26 11:26 | disposition home or self-care (01) ==
LOC: HO.XRAY 11:25
PROVIDERS: PCP Internal Medicine; Visit Provider Nurse Practitioner Family
DX: M54.2 Cervicalgia (principal); M54.9 Dorsalgia, unspecified
CPT/HCPCS: 72040; 72072

== ENCOUNTER 2023-10-13 12:15 | Outpatient (RCR) | payer MEDICARE, MEDICAID, SELFPAY ==
--- NOTE | 2023-10-13 14:34 | MHC.PT.EP ---
[facility] [place] Office [place] Office [place] [facility] [address] Nuha Carlson [address] [phone] F: [phone] F: [phone] F: [phone] F: [phone] Physical Therapy Plan of Care Date of Evaluation: 10/13/23 Date of Surgery: Diagnosis: Cervicalgia/dorsalgia Assessment: Pt is a 52 y/o F with HTN, fibromyalgia and migraines who is referred to PT for eval and treat of cervicalgia/dorsalgia resulting in decreased tolerance or ability for ambulating, driving, sleeping and completing HH chores secondary to decreased cervical ROM, decreased shoulder strength, TTP R UT, L scapular border, suboccipitals, increased tissue tension L UT, muscle spasm at R scapular border. Pt is motivated and is deemed an appropriate candidate to receive skilled PT services to address their physical impairments in order to improve their function. Frequency and Duration: The patient will be seen 2x/week for 3 weeks. Short Term Goals: Initiate home exercise program. Pt will report at most 4/10 pain; initial 7/10. Nursing Home Goals: Pt will increase cervical flexion ROM to 90%; initial 60%. Pt will report little to no pain with driving; initial moderate. Pt will report no sleep disturbance due to pain; initial 3/4 disturbed. Pt will improve Emily score by 10 points. Treatment Plan: Modalities to reduce pain, spasms and effusion. Manual therapy to restore motion and function. Therapeutic exercise to improve strength and flexibility. Neuromuscular re-education for posture and balance. Therapeutic activities to return to functional activities of daily living. Electronically signed by: Bryn Monson PT. Please sign and return to therapist. Thank you for your referral.
--- NOTE | 2023-10-24 14:21 | MHC.PT.DC ---
[facility] [place] Office [place] Office [place] Office [address] Nuha Carlson [address] [phone] F: [phone] F: [phone] F: [phone] F: [phone] Physical Therapy Discharge Report Diagnosis: Cervicalgia/dorsalgia Date of Surgery: Date of Evaluation: 10/13/23 Date of Discharge: 10/24/23 Treatments to Date: 1 Cancellations to Date: No Shows to Date: Discharge Status: Patient Elected to Stop Visit Non-compliance Discharge Summary: Elena is being discharged today per our attendance policy after logging 2 no shows following initial evaluation. Electronically signed by: Bryn Monson PT Please sign and return to therapist. Thank you for your referral.
== END 2023-10-24 14:21 | disposition home or self-care (01) ==
LOC: HO.PT 12:15
PROVIDERS: PCP Internal Medicine; Visit Provider Nurse Practitioner Family
DX: M54.9 Dorsalgia, unspecified (principal); M54.2 Cervicalgia; M79.7 Fibromyalgia
CPT/HCPCS: 97014; 97110; 97161

== ENCOUNTER 2023-12-28 04:41 | Emergency (ER) | payer MEDICARE, MEDICAID, SELFPAY ==
--- NOTE | ~2023-12-28 | XR_ITS ---
EXAMINATION: XR CHEST CLINICAL INFORMATION: Cough COMPARISON: Chest radiograph 02/17/2023. TECHNIQUE: 2 views of the chest were obtained. FINDINGS: Normal appearance of the cardiomediastinal structures. No effusions or pneumothoraces. Normal pattern of pulmonary vasculature. No focal pulmonary consolidation. XR/XR chest 2V IMPRESSION: Normal chest. Lungs clear. Electronically signed by: Dontae Cheney MD 12/28/2023 05:37 AM EDT
[2023-12-28 04:58] VITALS: BP 169/106; PULSE 85; RESP 16; TEMP 36.9; O2SAT 97; BMI 25.0
[2023-12-28 05:29] LABS: IDNOW Serial# 08D9AD1C; Strep A Nucleic Acid Negative (Negative)
[2023-12-28 05:35] LABS: COVID-19 Test Negative (Negative); IDNOW Serial# 152EDE1D; IDNOW Serial# 9DB6401D; Influenza A Negative (Negative); Influenza B2 Negative (Negative)
[2023-12-28 06:14] VITALS: BP 158/102; PULSE 81; RESP 18; TEMP 36.7; O2SAT 98
--- NOTE | 2023-12-28 06:31 | PC.NURSE ---
Pt a&ox4, no signs of distress. Pt reporting 9/10 headache and sore throat onset 3 days ago Pt believes this due to her sinuses Plan of care ongoing.
--- NOTE | 2023-12-28 06:50 | ED_ITS ---
HPI - General Adult General Chief complaint: General Medical Stated complaint: Diff Breathing Time Seen by Provider: 12/28/23 06:35 Source: patient Mode of arrival: ambulatory Limitations: no limitations History of Present Illness ED Provider: Maggie Gleason PA-C HPI narrative: Patient is a 52 year old assigned female at with a history of migraines and fibromyalgia presenting to the emergency department today with sinus pain and a cough. Patient states that over the last 4 days she has had a cough and sinus pain. Patient denies any dizziness, lightheadedness, abdominal pain, jimbo sea, vomiting, fever, chills, blurry vision, double vision, loss of vision, chest pain, difficulty breathing, shortness of breath, back pain, night sweats, pain with urination, increased urinary frequency, increased urinary urgency, blood in her urine or stool, syncope or a near syncopal episode, recent trauma or falls, bowel incontinence, bladder incontinence, or any other complaints at this time. Onset (ago): day(s) (4) Relieving factors: none Exacerbating factors: none Associated symptoms: denies other symptoms Treatments prior to arrival: none Related Data Home Medications ?Medication ?Instructions ?Recorded ?Confirmed butalbital 50 mg-acetaminophen 325 1 cap PO Q4H PRN 09/25/23 mg-caffeine 40 mg-codeine 30 mg cap levothyroxine 25 mcg capsule 25 mcg PO DAILY 09/25/23 lorazepam 1 mg tablet (Ativan) 1 mg PO BEDTIME PRN 09/25/23 meloxicam 7.5 mg tablet 7.5 mg PO DAILY 09/25/23 omeprazole 20 mg capsule,delayed 20 mg PO DAILY 09/25/23 release ondansetron HCl 4 mg tablet 4 mg PO Q8H 09/25/23 sertraline 100 mg tablet 100 mg PO DAILY 09/25/23 Previous Rx's ?Medication ?Instructions ?Recorded lisinopril 20 mg tablet 20 mg PO DAILY #30 tabs 02/17/23 gabapentin 300 mg capsule 300 mg PO TID pain 30 days #90 caps 09/25/23 riboflavin (vitamin B2) 400 mg 400 mg PO DAILY migraine headaches 09/25/23 tablet 30 days #30 tabs magnesium glycinate 100 mg (as 200 mg (2 x 100 mg) PO DAILY 11/13/23 glycinate) tablet migraines headaches 30 days #60 tabs levofloxacin 750 mg tablet 750 mg PO DAILY #7 tabs 12/28/23 Allergies Allergy/AdvReac Type Severity Reaction Status Date / Time Penicillins [PENICILLINS] Allergy Mild RASH Verified 12/28/23 05:02 doxycycline [DOXYCYCLINE] Allergy Unknown DIZZY Verified 12/28/23 05:02 ibuprofen Allergy Unknown Unknown Verified 12/28/23 05:02 Review of Systems Constitutional: Constitutional: Reports no additional constitutional complaints, Denies chills, Denies fever(s) and Denies night sweats Eyes: Eyes: Reports no additional eye complaints, Denies blurry vision, Denies change in vision, Denies diplopia, Denies eye discharge, Denies loss of vision and Denies eye pain ENT: Denies dizziness and Reports sinus pain Cardiovascular: Cardiovascular: Reports no additional cardiovascular complaints, Denies chest pain, Denies lightheadedness, Denies Loss of Consciousness and Denies dyspnea Respiratory: Respiratory: Reports no additional respiratory complaints, Reports cough and Denies dyspnea Gastrointestinal: Gastrointestinal: Reports no additional gastrointestinal complaints, Denies abdominal pain, Denies melena, Denies hematochezia, Denies change in bowel habits and Denies change in stool character Genitourinary: Genitourinary: Denies hematuria, Denies urinary frequency, Denies dysuria, Denies urinary incontinence, Denies urinary hesitancy and Denies urinary urgency Musculoskeletal: Musculoskeletal: Reports no additional musculoskeletal complaints, Denies numbness and Denies tingling Neurologic: Denies dizziness, Denies loss of vision, Denies numbness and Denies tingling Psychiatric: Psychiatric: Reports no additional psychiatric complaints Endocrine: Endocrine: Reports no additional endocrine complaints Hematologic/Lymphatic: Hematologic/Lymphatic: Reports no additional hematologic/lymphatic complaints Allergic/Immunologic: Allergic/Immunologic: Reports no additional allergic/immunologic complaints [facility] Past Medical History Attestation statement: The following information was validated with the patient. Source: old records reviewed and nursing notes reviewed Medical History Fibromyalgia Migraines Neck mass Anxiety GERD (gastroesophageal reflux disease) TMJ (temporomandibular joint syndrome) Carpal tunnel syndrome of left wrist Gastritis Fatty liver disease, nonalcoholic Hypothyroid Kidney stone delivery delivered Cholecystectomy planned HTN (hypertension) Surgical History Hx of tubal ligation Hx of section History of cholecystectomy Social History Social History Alcohol intake: current Alcohol intake frequency: does not drink Patient Tobacco Use Status: Former Tobacco user Smoked in Last 30 Days: No Use of substances other than those prescribed or required for medical reasons: No Advance Directives: No Do you have a plan to hurt others: No Plan Physical Exam ED Vital Signs: Vital Signs - 24 hr 12/28/23 04:58 12/28/23 06:14 12/28/23 07:28 Temperature 98.4 F 98.0 F 98 F Pulse Rate 85 81 84 Respiratory Rate 16 18 16 Blood Pressure 169/106 H 158/102 H 168/105 H Pulse Oximetry 97 98 98 Oxygen Delivery Method Room Air Room Air Room Air BMI result Body Mass Index 25.0 Const General: cooperative, no acute distress, alert and awake Nutritional Appearance: well nourished Orientation/consciousness: patient oriented x3 Limitations: no limitations HENMT Head: Yes normal to inspection and Yes atraumatic Ears: hearing grossly normal bilaterally and external ears normal General nose exam: Normal external nose present, no nasal discharge noted and no epistaxis Face and sinus: Yes normal facial exam, No abrasion and No laceration Mouth: Normal oral and palatal mucosa present, no drooling and no muffled voice Eyes General: appearance normal, both eyes and all related structures Periorbital: periorbital findings normal Eyelids: Yes eyelids normal Conjunctivae: conjunctivae normal Pupils: Equal, round and reactive pupils present EOM: EOMs intact bilaterally Neck Neck: Yes normal visual inspection, Yes full ROM and Yes no lymphadenopathy Chest Chest palpation & inspection: normal inspection of the chest Resp Effort & Inspection: normal respiratory effort and able to speak in complete sentences GI Inspection: Yes normal to inspection Neuro General: patient oriented x3 and moves all extremities Cranial nerves: Yes Equal, round and reactive pupils present Cognition (Neuro): normal cognition Extrem General: Yes normal to inspection, Yes full ROM and Yes capillary refill normal Psych Appearance: grossly normal Mental Status: mental status grossly normal Affect: normal affect Attitude: cooperative Thought process: Normal thought process present Thought content: Normal thought content present Insight: Good insight present (Psych) Medical Decision Making Medical Decision Making MDM Narrative: Patient is a 52 year old assigned female at with a history of migraines and fibromyalgia presenting to the emergency department today with a cough and sinus pain. Patient's physical exam was unremarkable. Patient's chest x-ray showed no acute process. I explained my physical exam findings as well as all test results to the patient. I answered all questions asked by the patient. I stressed the importance of the patient taking her medication as directed (either prescribed or as the over the counter packaging recommends). I stressed the importance of the patient following up with her primary care provider. I stressed the importance of the patient returning to the emergency department immediately if her symptoms were to worsen or if she were to develop any dizziness, shortness of breath, difficulty breathing, chest pain, blurry vision, loss of vision, nausea, vomiting, abdominal pain, fever, chills, back pain, or any other complaints. Patient verbalized agreement and understanding with this treatment plan and discharge. Differential Diagnosis Differential Diagnoses: The differential diagnosis associated with the presentation includes Sinusitis PNA COVID-19 Influenza RSV Admission/Observation Consideration of admission/observation: Escalation of care including admission/observation considered Patient would have been admitted to the hospital had her work up had any findings where hospital admission was appropriate and her clinical presentation warranted hospital admission. Lab Data [facility] Lab Attestation statement: I reviewed the patient's lab results. My interpretation of these results are in the [facility] Rationale portion of this note. Labs: Lab Results 12/28/23 Range/Units 05:16 COVID-19 (TOREY) Negative (Negative) COVID-19 Clin Com See Note Influenza Type A (MADELINE) Negative (Negative) Influenza Type B (MADELINE) Negative (Negative) Influenza A & B Note See Note S. pyogenes GrpA MADELINE Negative (Negative) Independent Interpretation I performed an independent interpretation of an: Plain X-Ray Interpretation: My interpretation is in agreement with the radiologist's impression of this imaging study. EXAMINATION: XR CHEST CLINICAL INFORMATION: Cough COMPARISON: Chest radiograph 02/17/2023. TECHNIQUE: 2 views of the chest were obtained. FINDINGS: Normal appearance of the cardiomediastinal structures. No effusions or pneumothoraces. Normal pattern of pulmonary vasculature. No focal pulmonary consolidation. XR/XR chest 2V IMPRESSION: Normal chest. Lungs clear. Electronically signed by: Dontae Cheney MD 12/28/2023 05:37 AM EDT RP Dictated By: Dontae Cheney MD Signed By: Electronically signed by Dontae Cheney MD 12/28/23 0537 Radiology Impression Discussion of test interpretation with radiology: I have reviewed the radiologist's reading. Prescription Management I considered prescription management with: Antibiotic (patient prescribed an antibiotic for sinusitis) Discharge Plan Discharge Clinical Impression: Sinusitis Patient Disposition: Home, Self-Care Instructions: Sinusitis (ED) Additional Instructions: Follow up with your primary care provider. Return to the emergency department immediately if your symptoms worsen or if you develop any dizziness, shortness of breath, difficulty breathing, chest pain, blurry vision, loss of vision, nausea, vomiting, abdominal pain, fever, chills, back pain, or any other com plaints. Prescriptions: New levofloxacin 750 mg tablet 750 mg PO DAILY Qty: 7 0RF No Action magnesium glycinate 100 mg tablet 200 mg PO DAILY 30 Days Qty: 60 3RF lisinopril 20 mg tablet 20 mg PO DAILY Qty: 30 0RF meloxicam 7.5 mg tablet 7.5 mg PO DAILY ondansetron HCl 4 mg tablet 4 mg PO Q8H [id number] mg capsule 1 cap PO Q4H PRN levothyroxine 25 mcg capsule 25 mcg PO DAILY omeprazole 20 mg capsule,delayed release(DR/EC) 20 mg PO DAILY sertraline 100 mg tablet 100 mg PO DAILY lorazepam [Ativan] 1 mg tablet 1 mg PO BEDTIME PRN gabapentin 300 mg capsule 300 mg PO TID 30 Days Qty: 90 0RF riboflavin (vitamin B2) 400 mg tablet 400 mg PO DAILY 30 Days Qty: 30 0RF Referrals: Rick Conn III, MD [Primary Care Provider] - Interventions: ED Discharge Assessment Last Done: 12/28/23 07:28 Discharge Date/Time: 12/28/23 07:29 Print Language: Urdu
[2023-12-28 07:28] VITALS: BP 168/105; PULSE 84; RESP 16; TEMP 36.6; O2SAT 98
== END 2023-12-28 07:29 | disposition home or self-care (01) ==
PROVIDERS: Emergency Provider Emergency Medicine Emergency Medical Services; PCP Internal Medicine
DX: J32.9 Chronic sinusitis, unspecified (principal); R05.9 Cough, unspecified; I10 Essential (primary) hypertension; E03.9 Hypothyroidism, unspecified; Z03.818 Encounter for observation for suspected exposure to other biological agents ruled out; Z87.891 Personal history of nicotine dependence; Z79.899 Other long term (current) drug therapy
CPT/HCPCS: 71046; 87502; 87635; 87651; 99283; 99284

== ENCOUNTER 2024-04-02 12:53 | Outpatient (AMB) | payer MEDICARE, MEDICAID, SELFPAY ==
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
--- OUTSIDE RECORDS SUMMARY | 2024-04-02 13:18 | XMS_ITS | Clinical Summary ---
Author Organization [facility] [address] [place] [address] [place] [address] Phone Care Team Providers Care Upholsterer Outside Name Role Phone Rick Conn MD Primary Care Provider [phone] Allergies Active Allergy Reactions Criticality Noted Date Comments Doxycycline 03/01/2017 Ibuprofen 05/23/2023 Burning with urination Penicillins Rash 10/26/2010 Medications Medication Sig Dispensed Refills Start Date End Date Status azelastine (ASTELIN) 137 mcg (0.1 %) nasal spray 2 Sprays by Each Nare route 2 times daily. 07/05/2022 Active cholecalciferol (VITAMIN D-3) 50 mcg (2,000 unit) tablet Take 1 Tablet by mouth daily. 05/10/2022 Active LORazepam (ATIVAN) 1 mg tablet Take 1 Tablet by mouth as needed. 04/29/2023 Active omeprazole (PriLOSEC) [address] capsule TAKE 1 CAPSULE BY MOUTH EVERY DAY 09/06/2023 Active ondansetron (ZOFRAN) 4 mg tablet TAKE 1 TABLET BY MOUTH EVERY 12 HOURS NEEDED FOR NAUSEA. 08/21/2023 Active sertraline (ZOLOFT) 100 mg tablet Take 1 Tablet by mouth daily. 03/02/2019 Active zolpidem (AMBIEN) 10 mg tablet Take 1 Tab by mouth at bedtime as needed. Active SUMAtriptan (IMITREX) 100 mg tablet START 1 TAB AT ONSET MAY REPEAT DOSE ONCE AFTER 2 HOURS, IF NEEDED. 9 tablet 2 02/13/2024 Active lisinopriL (PRINIVIL,ZESTRIL ) 20 mg tablet TAKE 1 TABLET BY MOUTH EVERY DAY 90 tablet 1 03/01/2024 Active meloxicam (MOBIC) 7.5 mg tablet TAKE 1 TABLET BY MOUTH EVERY DAY 30 tablet 5 03/13/2024 Active levothyroxine (SYNTHROID, LEVOTHROID) 25 mcg tablet TAKE 1 TABLET BY MOUTH EVERY DAY 90 tablet 1 03/25/2024 Active levothyroxine (SYNTHROID, LEVOTHROID) 25 mcg tablet TAKE 1 TABLET BY MOUTH EVERY DAY 03/17/2023 03/25/2024 Discontinued meloxicam (MOBIC) 7.5 mg tablet TAKE 1 TABLET BY MOUTH EVERY DAY 30 tablet 02/05/2024 03/13/2024 Discontinued Active Problems Problem Noted Date Diagnosed Date Overweight (BMI 25.0-29.9) 12/04/2023 Nephrolithiasis 12/04/2023 Prediabetes 12/04/2023 Dyslipidemia 12/04/2023 Atrophic vaginitis 12/04/2023 COVID-19 01/04/2022 Fatty liver disease, nonalcoholic 05/04/2021 Overview (12/04/2023): US Abdomen : 05/18 Gastritis 01/05/2021 Overview (12/04/2023): Mild gastritis seen at upper endoscopy on 2020. Biopsy negative for H. pylori infection. Subclinical hypothyroidism 05/21/2020 Carpal tunnel syndrome on left 12/15/2015 TMJ (temporomandibular joint syndrome) 5 GERD (gastroesophageal reflux disease) 5 HTN (hypertension) 05/01/2014 Anxiety 03/18/2014 Neck mass 06/01/2012 Overview (12/04/2023): Found on USG of the neck. I have recommend evaluation with CT scan on the neck with IV contrast (posted on 06/01/2012). Subtle asymmetric enlargement of left parotid gland, which may represent normal variation, parotiditis, or nonvisualized underlying mass. Lesion seen on recent ultrasound appears to represent a normal submandibular lymph node. Possible bilateral sialoliths. Clinical correlation with exacerbation of symptoms with eating is needed. If palpable abnormality persists, enhanced MRI or sialogram could be considered. Migraines 10/26/2010 Overview (12/04/2023): Photophobia, nausea and usually occur 3-4 times per week. Patient follows with Dr Kauffman at [facility] Date Type Department Care Team Description 04/01/2024 Telephone Adult [address] [phone] Rick Conn MD Back Pain 03/04/2024 Nurse Triage [address] [phone] Rick Conn MD 01/16/[address] [phone] Rick Conn MD Forms/questionnaires 01/15/2024 2:30 PM EST Office Visit Adult [address] [phone] Rick Conn MD Primary hypertension (Primary Dx); Subclinical hypothyroidism; Prediabetes; Dyslipidemia; Vitamin D deficiency; Sinusitis, unspecified chronicity, unspecified location from Last 3 Months Immunizations Name Administration Dates Next Due Influenza trivalent, with preservative (Fluzone; Afluria) 6mo and older 11/03/2019,03/28/2019,12/25/2017,2017,11/08/2012,2011,11/02/2010,0 11/25/2009 Tdap Tetanus diptheria acell ular pertussis (Boostrix; Adacel) 7yo and older 11/25/2020,10/26/2010 Zoster recombinant (Shingrix ) 19yo and older 01/05/2023,10/13/2022 Surgical History Surgery Date Site/Laterality Comments CHOLECYSTECTOMY PROCEDURE: HISTORICAL CHOLECYSTECTOMY; COMMENT: 1990 SECTION PROCEDURE: HISTORICAL DELIVERY; COMMENT: x2 TUBAL LIGATION PROCEDURE: HISTORICAL TUBAL LIGATION ESOPHAGOGASTRODUODENOSCOPY 04/18/2014 PROCEDURE: [place] ESOPHAGOGASTRODUODENOSCOPY TRANSORAL DIAGNOSTIC; COMMENT: normal OTHER SURGICAL HISTORY PROCEDURE: MAMMOGRAM; COMMENT: 12/21/16: Normal ESOPHAGOGASTRODUODENOSCOPY 2020 PROCEDURE: [place] EGD TRANSORAL BIOPSY SINGLE/MULTIPLE; COMMENT: Dr. Adamson -gastritis, otherwise normal. Biopsy shows chronic inactive gastritis. H. pylori negative. COLONOSCOPY 2020 PROCEDURE: HISTORICAL COLONOSCOPY; COMMENT: 10 year follow up Medical History Medical History Date Comments GERD without esophagitis DX:GERD without esophagitis TMJ (temporomandibular joint syndrome) 12/11/2014 DX:TMJ (temporomandibular jackeline int syndrome) Neck mass 06/01/2012 DX:Neck mass; CO MMENT: Found on USG of the neck. I have recommend evaluation with CT scan on the neck with IV contrast (posted on 06/01/2012). Subtle asymmetric enlargement of left parotid gland, which may represent normal variation, parotiditis, or nonvisualized underlying mass. Lesion seen on recent ultrasound appears to represent a normal submandibular lymph node. Possible bilateral sialoliths. * Family history of heart disease DX:Family history of heart disease Gastritis 01/05/2021 DX:Gastritis; CO MMENT: Mild gastritis seen at upper endoscopy on 2020. Biopsy negative for H. pylori infection. Family History Medical History Relation Name Comments Liver disease Father Dementia Mother Breast cancer Mother's side aunt Coronary artery disease Sister Colon polyps Son Colon cancer Neg Hx Ovarian cancer Neg Hx Relation Name Status Comments Father DM Mother htn, Asthma Mother's side Sister Alive Asthma Son Alive Social History Tobacco Use Types Packs/Day Years [...] file Not on file Not on file Obstetrics History Last Filed Vital Signs Vital Sign Reading Time Taken Comments Blood Pressure 136/86 01/15/2024 2:38 PM EST a Pulse 82 01/15/2024 2:38 PM EST Temperature 36.7 ??C (98.1 ??F) 01/15/2024 2:28 PM ES T Respiratory Rate 14 01/15/2024 2:28 PM EST Oxygen Saturation 98% 01/15/2024 2:28 PM EST Inhaled Oxygen Concentration - - Weight 63 kg (139 lb) 01/15/2024 2:28 PM EST Height 154.9 cm (5' 1 ) 01/15/2024 2:28 PM EST Body Mass Index 26.26 01/15/2024 2:28 PM EST Plan of Treatment Upcoming Encounters Date Type Department Care Team (Late st Contact Info) Description 07/15/2024 2:30 PM EDT Office Visit Adult Medicine [facility] [address] [place] [phone] Rick Conn MD [address] [place] [id number] Health Maintenance Due Date Last Done Comments Breast Cancer Screening 1968 Pneumococcal Vaccine: Pediatrics (0 to 5 Years) and At-Risk Patients (6 to 64 Years) (1 of 2 - PCV) 1974 Hepatitis B Vaccines (1 of 3 - 19+ 3-dose series) 12/30/1987 Depression Screening 02/05/2022 Medicare Annual Wellness Visit 02/05/2022 Social Influencers of Health Screening 02/05/2022 COVID-19 Vaccine (2023- season) 2023 05/30/2020, 05/09/2020 Influenza Vaccine (#1) 2023 , 03/28/2019, 12/25/2017, Additional history exists Hypertension/CHF/CAD Annual BMP Blood Test 09/24/2024 09/25/2023, 09/25/2023 Cervical Cancer Screening: Pap Smear 07/12/2025 07/12/2022, 07/12/2022 Cholesterol Screening (Lipid Panel) 09/24/2028 09/25/2023, 09/25/2023 DTaP,Tdap,and Td Vaccines (3 - Td or Tdap) 11/25/2030 11/25/2020, 10/26/2010 Colorectal Cancer Screening: Colonoscopy 09/04/2031 09/03/2021 Zoster Vaccines Completed 01/05/2023, 10/13/2022 HIV Screening Completed 09/06/2023, 09/06/2023 Hepatitis C Screening Completed 09/06/2023 HIB Vaccines Aged Out No longer eligi ble based on patient's age to complete this topic HPV Vaccines Aged Out No longer eligi ble based on patient's age to complete this topic Hepatitis A Vaccines Aged Out No long er eligible based on patient's age to complete this topic IPV Vaccines Aged Out No longer eligi ble based on patient's age to complete this topic MMR Vaccines Aged Out No longer eligi ble based on patient's age to complete this topic Meningococcal ACWY Vaccine Aged Out N o longer eligible based on patient's age to complete this topic RSV Immunization Patients Under 20 months Aged Out No longer eligible based on patient's age to complete this topic Varicella Vaccines Aged Out No longer eligible based on patient's age to complete this topic Procedures Procedure Name Priority Date/Time Associated Diagnosis Comments THYROID STIMULATING HORMONE Routine 01/15/2024 3:41 PM EST Subclinical hypothyroidism ANNUAL BMP BLOOD TEST Routine 09/25/2023 LIPID PANEL Routine 09/25/2023 HEPATITIS C SCREENING Routine 09/06/2023 HIV SCREENING Routine 09/06/2023 PAP SMEAR Routine 07/12/2022 COLONOSCOPY Routine 09/03/2021 from Last 3 Months or Most Recently Relevant to Health Maintenance Results * Thyroid stimulating hormone (01/15/2024 3:41 PM EST) TSH 3.92 0.40 - 4.00 mcIU/mL LAB CHEMISTRY METHOD 01/15/2024 6:42 PM EST [facility] Blood Venous blood specimen / Unknown Venipuncture / Unknown 01/15/2024 3:41 PM EST 01/15/2024 3:41 PM EST Rick Conn MD LAB BLOOD ORDERABLES [facility] [address] [place] [address], * Annual BMP Blood Test (09/25/2023) [facility] Annual BMP Blood Test abstracted Historical Provider [facility] E * (ABNORMAL) Lipid panel (09/25/2023) [facility] LDL/HDL Ratio 4 0 - 4 Triglycerides 144 0 - 150 mg/dL Cholesterol 189 0 - 200 mg/dL HDL 50 40 mg/dL LDL Cholesterol 111(A) 0 - 100 mg/dL Blood Venous blood specimen / Unknown Historical Provider LAB BLOOD ORDERAB LES * HIV Screening (09/06/2023) [facility] HIV Screening abstracted Historical Provider [facility] [place] * Hepatitis C Screening (09/06/2023) [facility] Hepatitis C Screening abstracted Historical Provider [facility] E * Pap smear (07/12/2022) 07/12/2022 Narrative HISTORICAL TESTING LAB RESULTING AGENCY - 07/18/2022 7:40 AM EDT [id number] THINPREP PAP, IMAGED: NEGATIVE FOR SQUAMOUS INTRAEPITHELIAL LESION AND MALIGNANCY . RONNI LEZAMA(ASCP) (CASE ELECTRONICALLY SIGNED 07 17 2022) RESULT OF APTIMA HIGH RISK HPV ASSAY: HIGH RISK HPV: ??NEGATIVE (SEROTYPES 16,18,31,33,35,39,45,51,52,56,58,59,66,68) COMPLETED ON 2022-07-13 ADEQUACY: SATISFACTORY ENDOCERVICAL/TRANSFORMATION ZONE COMPONENT ABSENT. SOURCE: THINPREP PAP HPV ANY DX: ??REFLEX 16 AND 18, CERVICAL, IMAGED CLINICAL INFORMATION: HPV ANY DIAGNOSIS. HORMONES, PAP HX NEGATIVE, LMP 07/06/2016, [Z01.419] Remigio Holbrook DO LAB CYTOLOGY ORDERAB LES HISTORICAL TESTING LAB RESULTING AGENCY * Colonoscopy (09/03/2021) Colonoscopy No interpreta tion,abstr acted Anatomical Region Laterality Modality Other Historical Provider MD DILIA Douglas from Last 3 Months or Most Recently Relevant to Health Maintenance Care Teams Upholsterer Outside Relationship Specialty Start Date End Date Rick Conn MD [address] [place] [id number] PCP - General Internal Medicine 12/08/14
--- OUTSIDE RECORDS SUMMARY | 2024-04-02 13:18 | XMS_ITS | Encounter Summary ---
Author Organization [employer] Address [address] [place] [address] Care Team Providers Care Tea Room Manager Name Role Phone Rick Conn MD Primary Care Provider [phone] Encounter Details Date Type Department Care Team (Late Contact Info) Description 03/04/2024 Nurse Triage Adult Medicine [address] [phone] Rick Conn MD [address] [place] [phone] Social History Tobacco Use Types Packs/Day Years [...] on file documented as of this encounter Plan of Treatment Upcoming Encounters Date Type Department Care Team (Late st Contact Info) Description 07/15/2024 2:30 PM EDT Office Visit Adult Medicine [address] [phone] Rick Conn MD [address] [place] [id number] documented as of this encounter Visit Diagnoses Not on filedocumented in this encounter Care Teams Tea Room Manager Relationship Specialty Start Date End Date Rick Conn MD [address] [place] [id number] PCP - General Internal Medicine 12/08/14 documented as of this encounter
[2024-04-02 14:01] VITALS: BP 120/90; PULSE 85; O2SAT 99
--- NOTE | 2024-04-02 14:01 | AM.OFFWIN_ITS ---
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 Patient Tobacco Use Status: Former Tobacco user Allergies Penicillins [PENICILLINS] Allergy (Mild, Verified 04/02/24 14:08) RASH doxycycline [DOXYCYCLINE] Allergy (Unknown, Verified 04/02/24 14:08) DIZZY ibuprofen Allergy (Unknown, Verified 04/02/24 14:08) Unknown Do you need a note to return to daycare/school/sports/work: No HPI HPI Comments 2 History of Present Illness Details This is a 53-year-old female with a past medical history of high blood pressure presenting for evaluation of left-sided low back pain that she has had for the past 3 weeks. Patient states that she has been seated in the emergency department on 3 separate occasions with her children for hours at a time and she feels that this contributes to her pain. Patient denies any overt injury or trauma to her low back preceding the onset of her symptoms. Patient denies any radiation of pain into her lower extremities bilaterally. Patient took a single dose of Naprosyn, which she has previously taken, however it was very upsetting to her stomach. Patient denies any bowel or bladder incontinence, saddle paresthesias, numbness or tingling in her lower extremities. [facility] Medical History Fibromyalgia Migraines Neck mass Anxiety GERD (gastroesophageal reflux disease) TMJ (temporomandibular joint syndrome) Carpal tunnel syndrome of left wrist Gastritis Fatty liver disease, nonalcoholic Hypothyroid Kidney stone delivery delivered Cholecystectomy planned HTN (hypertension) Surgical History Hx of tubal ligation Hx of section History of cholecystectomy Social History Alcohol intake: current Alcohol intake frequency: does not drink Patient Tobacco Use Status: Former Tobacco user Review of Systems Const All systems reviewed & are unremarkable except as noted in HPI and below Denies weakness Eyes Reports no additional complaints ENT Reports no additional complaints Card Reports as per HPI Resp Reports no additional complaints GI Reports no additional complaints Reports no additional complaints Musc Reports back pain (left low back), Denies numbness, Denies radiating pain into limb and Denies tingling Skin/Breast Reports system reviewed and no additional complaints, except as documented Neuro Reports no additional complaints, Denies focal weakness, Denies numbness, Denies radicular pain, Denies restless legs, Denies tingling, Denies paresthesias and Denies weakness Psych Reports no additional complaints Endo Reports no additional complaints Charles/Lymph Reports no additional complaints Aller/Immun Reports no additional complaints Physical Exam Vital Signs: Last Vital Signs Pulse 85 04/02/24 14:01 BP 120/90 H 04/02/24 14:01 Pulse Ox 99 04/02/24 14:01 Oxygen Delivery Method Room Air 04/02/24 14:01 Const General: cooperative, healthy appearing, no acute distress, well developed, alert, awake and Physically active; No comfortable Nutritional Appearance: average body habitus Orientation/consciousness: patient oriented x3 Limitations: no limitations General: Yes no CVA tenderness Back/Spine/Pelvis Back: no CVA tenderness Cervical Spine: normal cervical lordosis Thoracic/Lumbar Spine: thoracic and lumbar spine normal to inspection, pain with thoraco-lumbar ROM, paraspinal muscle tenderness on the left in the mid lumbar, No thoraco-lumbar spasm, No thoracic spinal tenderness and No lumbar spinal tenderness Pelvis: no sciatic notch tenderness Sacroiliac joints: bilaterally nontender Skin General skin exam: no rashes or lesions noted Neuro Other: Sensation intact distal lower extremities bilaterally General: patient oriented x3 Assessment & Plan Assessment & Plan (1) Lumbar pain: Comment: Patient's history coupled with her examination is consistent with a lumbar strain which will require anti-inflammatory therapy. The enteric coated version of Naprosyn will be prescribed along with a muscle relaxant. Code(s): M54.50 - Low back pain, unspecified Plan: Naprosyn 500 mg b.i.d. times 10 days; methocarbamol q.i.d. times 5 days. Medications: New naproxen (EC-Naprosyn) 500 mg PO BID 20 tabs 0RF methocarbamol 750 mg PO QID 20 tabs 0RF Coding Level of Care Code Est Pt Level 3 (57216) Diagnoses Lumbar pain M54.50 Time Spent (min) 20
== END 2024-04-02 14:42 | disposition home or self-care (01) ==
PROVIDERS: PCP Internal Medicine; Visit Provider Physician Assistant
DX: M54.50 Low back pain, unspecified (principal)

== ENCOUNTER 2024-05-20 13:32 | Outpatient (REF) | payer MEDICARE, MEDICAID, SELFPAY ==
--- NOTE | ~2024-05-20 | XR_ITS ---
EXAMINATION: XR PELVIS 1-2 VIEWS HISTORY: R10.2 AP PELVIS COMPARISON: There are no prior studies for comparison. FINDINGS: A single AP view of the pelvis is submitted. Osseous mineralization is normal. There is no fracture or dislocation. The hip and sacroiliac joint spaces are maintained. The soft tissues are unremarkable. XR/XR pelvis 1-2V IMPRESSION: Unremarkable examination of the pelvis. Electronically signed by: Ken Bauer MD 05/21/2024 01:38 PM EDT
== END 2024-05-20 13:33 | disposition home or self-care (01) ==
LOC: HO.XRAY 13:32
PROVIDERS: PCP Internal Medicine; Visit Provider Chiropractor
DX: R10.2 Pelvic and perineal pain (principal)
CPT/HCPCS: 72170

== ENCOUNTER → 2024-05-20 13:47 | Outpatient (BNV) | payer MEDICARE, MEDICAID, SELFPAY | PROVIDERS: PCP Internal Medicine; Visit Provider Radiology Diagnostic Radiology | DX: R10.2 Pelvic and perineal pain (principal) | CPT/HCPCS: 72170 ==

== ENCOUNTER 2024-08-25 23:04 | Emergency (ER) | payer MEDICARE, MEDICAID, SELFPAY ==
[2024-08-25 23:08] VITALS: BP 146/80; O2SAT 98
[2024-08-25 23:11] VITALS: BP 134/86; PULSE 88; RESP 16; TEMP 36.8; O2SAT 96; BMI 25.5
[2024-08-25 23:23] LABS: MANUAL DIFF FLAG NO
[2024-08-25 23:24] LABS: Basophils Percent Auto 0.3 % (0-2); Eosinophils Percent Auto 0.2 % (0-4); Hematocrit 42.7 % (37.0-47.0); Hemoglobin 13.8 g/dl (12.0-16.0); Imm Gran Abs Auto 0.09 X10*3/uL (0.00-0.03); Imm Gran Pct Auto 0.6 % (0.0-0.4); Lymphocytes Absolute Auto 1.1 X10*3/uL (1.2-4.9); Lymphocytes Percent Auto 6.6 % (20-40); Mean Corpuscular HGB Conc 32.3 g/dl (31.0-35.0); Mean Corpuscular Hemoglobin 27.1 pg (27.0-33.0); Mean Corpuscular Volume 83.7 fL (80.0-98.0); Mean Platelet Volume 11.1 fL (9.4-12.3); Monocytes Absolute Auto 0.8 X10*3/uL (0.1-1.2); Neutrophils Absolute Auto 13.9 x10*3/uL (2.0-8.3); Neutrophils Percent Auto 87.3 % (45-73); Platelet Count 219 X10*3/uL (160-400); White Blood Count 15.9 X10*3/uL (4.8-10.8)
[2024-08-25 23:43] LABS: Alanine Aminotransferase 23 U/L (0-31); Albumin Level 4.8 g/dL (3.5-5.0); Alkaline Phosphatase 97 U/L (39-117); Anion Gap 13 (12-20); Aspartate Amino Transferase 23 U/L (5-31); Bilirubin Total 0.3 mg/dL (0.0-1.0); Blood Urea Nitrogen 16 mg/dL (9-16); Calcium 9.2 mg/dL (8.4-10.2); Carbon Dioxide 23 mmol/L (22-29); Chloride 109 mmol/L (96-108); Creatinine Clr Calc Pharmacy 59.9; Estimated Glomerular Filt Rate > 60; Glucose Random 104 mg/dL (60-115); Potassium 3.7 mmol/L (3.3-5.1); Sodium 141 mmol/L (135-145); Total Protein 7.5 g/dL (6.5-8.0)
--- NOTE | 2024-08-26 01:30 | ED.GENADULT ---
HPI - General Adult General Chief complaint: Nausea/Vomiting/Diarrhea Stated complaint: VOMITTING HX 1 DAY Time Seen by Provider: 08/26/24 01:30 History of Present Illness ED Provider: Leela MAIER narrative: The patient is a 53-year-old woman who has a history of a cholecystectomy. She says that yesterday evening she went to a park and ate food that was cooked in the park. There was some kind of festival where people working food. She woke up at around 05:00 in the morning with diarrhea. She had diarrhea for awhile in the morning and then felt reasonably well during the day but this evening had a recurrence of diarrhea and also nausea and vomiting and ultimately came to the emergency room. She wonders if she has food poisoning from what she ate when she went to the park. Related Data Home Medications ?Medication ?Instructions ?Recorded ?Confirmed butalbital 50 mg-acetaminophen 325 1 cap PO Q4H PRN 09/25/23 mg-caffeine 40 mg-codeine 30 mg cap levothyroxine 25 mcg capsule 25 mcg PO DAILY 09/25/23 lorazepam 1 mg tablet (Ativan) 1 mg PO BEDTIME PRN 09/25/23 omeprazole 20 mg capsule,delayed 20 mg PO DAILY 09/25/23 release ondansetron HCl 4 mg tablet 4 mg PO Q8H 09/25/23 sertraline 100 mg tablet 100 mg PO DAILY 09/25/23 Previous Rx's ?Medication ?Instructions ?Recorded lisinopril 20 mg tablet 20 mg PO DAILY #30 tabs 02/17/23 gabapentin 300 mg capsule 300 mg PO TID pain 30 days #90 caps 09/25/23 riboflavin (vitamin B2) 400 mg 400 mg PO DAILY migraine headaches 09/25/23 tablet 30 days #30 tabs methocarbamol 750 mg tablet 750 mg PO QID #20 tabs 04/02/24 naproxen 500 mg tablet,delayed 500 mg PO BID #20 tabs 04/02/24 release (EC-Naprosyn) ondansetron 4 mg disintegrating 4 mg PO Q6H PRN nausea and 08/26/24 tablet vomiting #10 tabs Allergies Allergy/AdvReac Type Severity Reaction Status Date / Time Penicillins (PENICILLINS) Allergy Mild RASH Verified 08/25/24 23:12 doxycycline (DOXYCYCLINE) Allergy Unknown DIZZY Verified 08/25/24 23:12 ibuprofen Allergy Unknown Unknown Verified 08/25/24 23:12 Review of Systems Review of Systems: Yes all other systems are reviewed and are negative [facility] Past Medical History Medical History Fibromyalgia Migraines Neck mass Anxiety GERD (gastroesophageal reflux disease) TMJ (temporomandibular joint syndrome) Carpal tunnel syndrome of left wrist Gastritis Fatty liver disease, nonalcoholic Hypothyroid Kidney stone delivery delivered Cholecystectomy planned HTN (hypertension) Surgical History Hx of tubal ligation Hx of section History of cholecystectomy Social History Social History Alcohol intake: current Alcohol intake frequency: does not drink Patient Tobacco Use Status: Former Tobacco user Physical Exam ED Vital Signs: Vital Signs - 24 hr 08/25/24 23:11 08/26/24 03:04 Temperature 98.2 F 97.9 F Pulse Rate 88 81 Respiratory Rate 16 16 Blood Pressure 134/86 113/61 Pulse Oximetry 96 96 Oxygen Delivery Method Room Air Room Air BMI result Body Mass Index 25.5 Const Other: The patient is awake and alert. She looks mildly unwell but not acutely toxic. Orientation/consciousness: patient oriented x3 HENMT Other: The face is symmetrical. Mucous membranes moist. Eyes Other: Pupils are round equal, conjunctivae are clear, extraocular movements intact Neck Neck: Yes normal visual inspection and Yes full ROM Resp Effort & Inspection: normal respiratory effort Auscultation: clear to auscultation bilaterally Cardio Rate: regular rate Rhythm: regular rhythm Heart sounds: S1 normal heart sound present and S2 normal heart sound present GI Other: The abdomen is soft and nontender. Skin Other: The skin is dry and unremarkable Neuro General: patient oriented x3, gait normal, tone normal, moves all extremities, no focal motor deficits and CN's II-XI intact bilaterally Extrem Other: There is no calf swelling or tenderness. No asymmetry. No peripheral edema. Medications Administered Discontinued Medications Generic Name Dose Route Start Last Admin Trade Name Freq PRN Reason Stop Dose Admin Droperidol 0.625 mg 08/26/24 01:35 08/26/24 01:43 Droperidol 5 Mg/2 Ml Vial IVPUSH 08/26/24 01:36 0.625 mg ONCE ONE Administration Famotidine 20 mg 08/26/24 01:38 08/26/24 01:44 Famotidine/Pf 20 Mg/2 Ml Vial IVPUSH 08/26/24 01:39 20 mg ONCE ONE Administration Sodium Chloride 1,000 mls @ 999 mls/hr 08/26/24 01:45 08/26/24 02:40 Ns IV 08/26/24 02:45 Infused .Q1H1M RIC Infusion Medical Decision Making Medical Decision Making [facility] Narrative: the patient is a 53-year-old female who presents with nausea, vomiting, and diarrhea after having had a meal at a park festival. She has a benign abdomen. She was treated symptomatically. I suspect this is a case of food poisoning. She felt better and seemed well enough for discharge. Lab Data 08/25/24 23:18 08/25/24 23:18 Labs: Lab Results 08/25/24 Range/Units 23:18 WBC 15.9 H (4.8-10.8) X10*3/uL RBC 5.10 (4.20-5.50) X10*6/uL Hgb 13.8 (12.0-16.0) g/dl Hct 42.7 (37.0-47.0) % MCV 83.7 (80.0-98.0) fL MCH 27.1 (27.0-33.0) pg MCHC 32.3 (31.0-35.0) g/dl RDW 14.0 (11.0-16.0) % Plt Count 219 (160-400) X10*3/uL MPV 11.1 (9.4-12.3) fL Immature Gran % (Auto) 0.6 H (0.0-0.4) % Neut % (Auto) 87.3 H (45-73) % Lymph % (Auto) 6.6 L (20-40) % Nicholas % (Auto) 5.0 (2-11) % Eos % (Auto) 0.2 (0-4) % Baso % (Auto) 0.3 (0-2) % Lymph # (Auto) 1.1 L (1.2-4.9) X10*3/uL Nicholas # (Auto) 0.8 (0.1-1.2) X10*3/uL Eos # (Auto) 0.0 (0.0-0.4) X10*3/uL Baso # (Auto) 0.0 (0.0-0.2) X10*3/uL Abs Immat Gran (auto) 0.09 H (0.00-0.03) X10*3/uL Absolute Neuts (auto) 13.9 H (2.0-8.3) x10*3/uL Absolute Nucleated RBC 0.000 (0.0-0.012) X10*3/uL Nucleated RBC % (auto) 0.0 (0.0-0.2) /100WBC Sodium 141 (135-145) mmol/L Potassium 3.7 (3.3-5.1) mmol/L Chloride 109 H (96-108) mmol/L Carbon Dioxide 23 (22-29) mmol/L Anion Gap 13 (12-20) BUN 16 (9-16) mg/dL Creatinine 0.89 (0.5-1.4) mg/dL Estim Creat Clear Calc 59.9 Estimated GFR > 60 Random Glucose 104 (60-115) mg/dL Calcium 9.2 (8.4-10.2) mg/dL Total Bilirubin 0.3 (0.0-1.0) mg/dL AST 23 (5-31) U/L ALT 23 (0-31) U/L Alkaline Phosphatase 97 (39-117) U/L C-Reactive Protein 0.49 (< or = 0.50) mg/dL Total Protein 7.5 (6.5-8.0) g/dL Albumin 4.8 (3.5-5.0) g/dL Beta HCG, Quant < 2 mIU/mL Discharge Plan Discharge Clinical Impression: Nausea vomiting and diarrhea Patient Disposition: Home, Self-Care Additional Instructions: Please rest and take it easy tonight and tomorrow. I would eat simple foods on Monday. Dry toast and well cooked rice would be good. Clear fluids. Continue your regular medications. I have sent a prescription for ondansetron (Zofran) which you may use as needed for nausea. Please follow up with your regular doctor if not improving. Return to the emergency room if significantly worse. Prescriptions: New ondansetron 4 mg tablet,disintegrating 4 mg PO Q6H PRN (Reason: nausea and vomiting) Qty: 10 0RF No Action lisinopril 20 mg tablet 20 mg PO DAILY Qty: 30 0RF ondansetron HCl 4 mg tablet 4 mg PO Q8H [id number]-[id number] [id number] mg capsule 1 cap PO Q4H PRN levothyroxine 25 mcg capsule 25 mcg PO DAILY omeprazole 20 mg capsule,delayed release(DR/EC) 20 mg PO DAILY sertraline 100 mg tablet 100 mg PO DAILY lorazepam [Ativan] 1 mg tablet 1 mg PO BEDTIME PRN gabapentin 300 mg capsule 300 mg PO TID 30 Days Qty: 90 0RF riboflavin (vitamin B2) 400 mg tablet 400 mg PO DAILY 30 Days Qty: 30 0RF naproxen [EC-Naprosyn] 500 mg tablet,delayed release (DR/EC) 500 mg PO BID Qty: 20 0RF methocarbamol 750 mg tablet 750 mg PO QID Qty: 20 0RF Referrals: Rick Conn III, MD [Physician, Medical] Interventions: ED Discharge Assessment Last Done: 08/26/24 03:04 Discharge Date/Time: 08/26/24 03:05 Print Language: Divehi
[2024-08-26] MEDS: droPERidol 5 MG/2 ML VIAL 0.625 MG IVPUSH (01:43)
[2024-08-26] MEDS: 0.9 % Sodium Chloride 1,000 ML 999 ML IV (01:44)
[2024-08-26] MEDS: Famotidine/PF 20 MG/2 ML VIAL IVPUSH (01:44)
[2024-08-26 01:56] LABS: C Reactive Protein 0.49 mg/dL (< or = 0.50); HCG Quantitative < 2 mIU/mL
[2024-08-26 03:04] VITALS: BP 113/61; PULSE 81; RESP 16; TEMP 36.6; O2SAT 96
== END 2024-08-26 03:05 | disposition home or self-care (01) ==
PROVIDERS: Emergency Provider Emergency Medicine
DX: R19.7 Diarrhea, unspecified (principal); R11.2 Nausea with vomiting, unspecified; I10 Essential (primary) hypertension; K21.9 Gastro-esophageal reflux disease without esophagitis; Z79.899 Other long term (current) drug therapy
CPT/HCPCS: 36415; 80053; 84702; 85025; 86140; 96361; 96374; 96375; 99284; J1308; J1790

== ENCOUNTER 2024-08-26 13:35 | Outpatient (REF) | payer MEDICARE, MEDICAID, SELFPAY ==
--- OUTSIDE RECORDS SUMMARY | 2024-08-26 14:04 | XMS_ITS | Encounter Summary ---
Author Organization [employer] [facility] [employer] Address [address] [place] [address] Care Team Providers Care Labor Relations Manager Name Role Phone Rick Conn MD Primary Care Provider [phone] Encounter Details Date Type Department Care Team (Late st Contact Info) Description 03/04/2024 Nurse Triage Adult Medicine [address] [phone] Rick Conn MD [address] [place] [phone] Social History Tobacco Use Types Packs/Day Years Used Date Smoking Tobacco: Former Cigarettes Q uit: 02/27/1989 Smokeless Tobacco: Former Alcohol Use Standard Drinks/Week Comments Yes 0 (1 standard drink = 0.6 oz pur e alcohol) Comments No Sex and Gender Information Value Date Recorded Sex Assigned at Not on file Legal Sex Female 1:56 PM EST Gender Identity Not on file Sexual Orientation Not on file documented as of this encounter Plan of Treatment Upcoming Encounters Date Type Department Care Team (Late st Contact Info) Description 10/18/2024 1:30 PM EDT Office Visit Gastroenterology - [place] [address] [facility] [address] [place] [phone] Graciela Adamson MD [address] [facility] [address] [place] [address] 01/21/2025 1:00 PM EST Office Visit Adult Medicine [facility] [address] [place] [phone] Sesar Klein PA [address] [place], [place] [phone] documented as of this encounter Visit Diagnoses Not on filedocumented in this encounter Care Teams Labor Relations Manager Relationship Specialty Start Date End Date Rick Conn MD [address] [place] [phone] PCP - General Internal Medicine 12/08/14 documented as of this encounter
== END 2024-08-26 13:36 | disposition home or self-care (01) ==
LOC: HO.MAMMO 13:35
PROVIDERS: PCP Internal Medicine; Visit Provider Internal Medicine
DX: Z12.31 Encounter for screening mammogram for malignant neoplasm of breast (principal)
CPT/HCPCS: 77063; 77067

== ENCOUNTER → 2024-08-26 14:00 | Outpatient (BNV) | payer MEDICARE, MEDICAID, SELFPAY | PROVIDERS: PCP Internal Medicine; Visit Provider Internal Medicine | DX: Z12.31 Encounter for screening mammogram for malignant neoplasm of breast (principal) | CPT/HCPCS: 77063; 77067 ==

== ENCOUNTER 2025-01-17 08:44 | Outpatient (REF) | payer MEDICARE, MEDICAID, SELFPAY ==
--- NOTE | ~2025-01-17 | XR_ITS ---
EXAMINATION: XR HIP, LEFT CLINICAL INFORMATION: M25.559 - Pain in unspecified hip COMPARISON: Correlated to pelvis x-ray dated May 20, 2024. TECHNIQUE: AP view pelvis which includes the abdomen. AP and oblique views of the left hip. FINDINGS: No acute cortical disruption or malalignment or lytic or blastic lesions in the left coxofemoral joint. The bony pelvis is intact. 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 Degenerative changes in the soft tissues. XR/XR hip LT min 2V IMPRESSION: No acute fracture or dislocation or gross degenerative changes, left hip. Electronically signed by: Wagner Sexton MD 01/17/2025 09:54 AM WILLY
--- OUTSIDE RECORDS SUMMARY | 2025-01-20 09:11 | XMS_ITS | Encounter Summary ---
Author Organization [facility] Address [address] [place] [address] Care Team Providers Care Barback Name Role Phone Rick Conn MD Primary Care Provider [phone] Encounter Details Date Type Department Care Team (Late Contact Info) Description 03/04/2024 Nurse Triage Adult Medicine [address] [phone] Rick Conn MD [address] [place] [address] Social History Tobacco Use Types Packs/Day Years [...] 1:00 PM EST Office Visit Adult Medicine [address] [phone] Sesar Klein PA [address] [place] [address] 05/09/2025 2:50 PM EDT Office Visit Gastroenterology - [address] [facility] [address] [place] [phone] Graciela Adamson MD 299 [facility] [address] [place] [address] documented as of this encounter Visit Diagnoses Not on filedocumented in this encounter Care Teams Barback Relationship Specialty Start Date End Date Rick Conn MD [address] [place] [phone] PCP - General Internal Medicine 12/08/14 documented as of this encounter
--- OUTSIDE RECORDS SUMMARY | 2025-01-20 09:11 | XMS_ITS | Clinical Summary ---
Author Organization [facility] Address [address] [facility] [address] [place] [phone] Phone Care Team Providers Care Supervisor Front Name Role Phone Pcp, Unknown Primary Care [...] Description 02/11/2025 10:10 AM EST Office Visit [facility] Rheumatology [address] [place] [address] [place] [address] Carolin Hi MD, MPH [address] [facility], [address] [place] [address] [email or web address] Health Maintenance Due Date Last Done Comments [...] on file Insurance [employer] PPO MEDICARE REPLACEMENT [address] MEDICARE PART A & B [facility] MEDICARE REPLACEMENT Member Subscriber Plan / Payer (Ef fective 2022-Present) Name:ColonMichelleElena Relation to Subscriber:Self Name:Michelle Ferminsol Payer ID:[id number] ([facility]) Type:Medicare Address: [address] MEDICARE PART A & B [employer] P[employer] MEDICARE REPLACEMENT [facility] [place] [id number] MEDICARE PART A & [place] [facility] [place] [address] [facility] MEDICARE REPLACEMENT HEALTH MEDICARE PART A & B [facility] [place] [address] [employer] P[employer] MEDICARE REPLACEMENT MEDICARE PART A & B [employer] MEDICARE REPLACEMENT MEDICARE PART A & B Care Teams Supervisor Front Relationship Specialty Start Date End Date Pcp, Unknown PCP - General 09/13/22 Additional Source Comments The information contained in this document represents components of the legal health record. It is not the complete legal health record.[facility]
--- OUTSIDE RECORDS SUMMARY | 2025-01-20 09:12 | XMS_ITS | Clinical Summary ---
Author Organization [facility] [address] [place] [address] [place] [address] Phone Care Team Providers Care Road Boss Name Role Phone Rick Conn MD Primary Care Provider [phone] Allergies Active Allergy Reactions Criticality Noted Date [...] week. Patient follows with Dr Kauffman at [place] Immunizations Immunization Administration Dates Next Due Influenza [...] PROCEDURE: HISTORICAL TUBAL LIGATION ESOPHAGOGASTRODUODENOSCOPY 04/18/2014 PROCEDURE: GA ESOPHAGOGASTRODUODENOSCOPY TRANSORAL DIAGNOSTIC; COMMENT: normal OTHER SURGICAL HISTORY PROCEDURE: MAMMOGRAM; COMMENT: 12/21/16: Normal ESOPHAGOGASTRODUODENOSCOPY 2020 PROCEDURE: GA EGD TRANSORAL BIOPSY SINGLE/MULTIPLE; COMMENT: Dr. Adamson [...] care for your loved ones. For example, child development director or elderly care for an older adult? [...] PM EST Office Visit Adult Medicine [address] [phone] Sesar Klein PA [address] [place] [phone] 05/09/2025 2:50 PM EDT Office Visit Gastroenterology - [address] [phone] Graciela Adamson MD [address] [facility] [address] [place] [address] Health Maintenance Due Date Last Done Comments [...] LAB CHEMISTRY METHOD 07/16/2024 1:23 PM EDT [facility] Triglycerides 170(H) 0 - 150 mg/dL LAB CHEMISTRY METHOD 07/16/2024 1:23 PM EDT [facility] HDL 50 >=40 mg/dL LAB CHEMISTRY METHOD 07/16/2024 1:23 PM EDT [facility] LDL Calculated 92 0 - 100 mg/dL LAB CHEMISTRY METHOD 07/16/2024 1:23 PM EDT [facility] VLDL Cholesterol Angel 34 mg/dL LAB CHEMISTRY METHOD 07/16/2024 1:23 PM EDT [facility] Non HDL Chol. (LDL+VLDL) 126 <145 mg/dL LAB CHEMISTRY METHOD 07/16/2024 1:23 PM T [facility] Chol/HDL Ratio 3.5 0.0 - 4.4 LAB CHEMISTRY METHOD 07/16/2024 1:23 PM T [facility] Blood Venous blood specimen / Unknown Venipuncture / Unknown 07/16/2024 9:36 AM EDT 07/16/2024 9:36 AM EDT us Rick Conn MD LAB BLOOD ORDERABLES Final Resu lt [facility] [address] [place] [address], * Comprehensive metabolic panel (07/16/2024 9:36 AM EDT) Sodium 142 133 - 145 mmol/L LAB CHEMISTRY METHOD 07/16/2024 1:23 PM [facility] Potassium 4.0 3.5 - 5.5 mmol/L LAB CHEMISTRY METHOD 07/16/2024 1:23 PM [facility] Chloride 108 96 - 110 mmol/L LAB CHEMISTRY METHOD 07/16/2024 1:23 PM [facility] CO2 28 21 - 32 mmol/L LAB CHEMISTRY METHOD 07/16/2024 1:23 PM [facility] Anion Gap 6 3 - 11 LAB CHEMISTRY METHOD 07/16/2024 1:23 PM [facility] Glucose 100 70 - 100 mg/dL LAB CHEMISTRY METHOD 07/16/2024 1:23 PM [facility] BUN 10 5 - 25 mg/dL LAB CHEMISTRY METHOD 07/16/2024 1:23 PM [facility] Creatinine 0.72 0.50 - 1.10 mg/dL LAB CHEMISTRY METHOD 07/16/2024 1:23 PM [facility] eGFR 99 >=60 mL/min/1. 73m2 LAB CHEMISTRY METHOD 07/16/2024 1:23 PM [facility] Comment:Calculation based on the Chronic Kidney Disease Epidemiology Collaboration (CKD-EPI) equation refit without adjustment for race. BUN/Creatinine Ratio 13.9 LAB CHEMISTRY METHOD 07/16/2024 1:23 PM [facility] Calcium 9.5 8.5 - 10.5 mg/dL LAB CHEMISTRY METHOD 07/16/2024 1:23 PM [facility] AST (SGOT) 14 10 - 42 unit/L LAB CHEMISTRY METHOD 07/16/2024 1:23 PM [facility] ALT (SGPT) 26 10 - 60 unit/L LAB CHEMISTRY METHOD 07/16/2024 1:23 PM [facility] Alkaline Phosphatase 94 42 - 121 unit/L LAB CHEMISTRY METHOD 07/16/2024 1:23 PM [facility] Total Protein 6.9 6.0 - 8.0 g/dL LAB CHEMISTRY METHOD 07/16/2024 1:23 PM [facility] Albumin 4.1 3.2 - 5.0 g/dL LAB CHEMISTRY METHOD 07/16/2024 1:23 PM [facility] Total Bilirubin 0.6 0.0 - 1.4 mg/dL LAB CHEMISTRY METHOD 07/16/2024 1:23 PM [facility] Blood Venous blood specimen / Unknown Venipuncture / Unknown 07/16/2024 9:36 AM EDT 07/16/2024 9:36 AM EDT us Rick Conn MD LAB BLOOD ORDERABLES Final [facility]u lt [facility] [address] [place] [address], * HIV Screening (09/06/2023) HIV Screening abstracted Historical Provider HEALTH MAINTENANCE Final Result * Hepatitis C Screening (09/06/2023) Hepatitis C Screening abstracted Historical Provider MD HEALTH MAINTENANCE Final Result * Pap Smear (07/12/2022) Pap smear Abstracted ,negative [facility] Provider HEALTH MAINTENANCE Final Result * Colonoscopy (09/03/2021) Colonoscopy No interpreta tion,abstr acted Anatomical Region Laterality Modality Other Historical Provider HEALTH MAINTENANCE Final Result from Last 3 Months or Most Recently Relevant to Health [id number] [address] [place]ICAID - [place] [facility] MEDICARE ADVANTAGE on file MEDICARE Care Teams Road Boss Relationship Specialty Start Date End Date Rick Conn MD [address] [place] [phone] PCP - General Internal Medicine 12/08/14
== END 2025-01-17 08:45 | disposition home or self-care (01) ==
LOC: HO.HOSX 08:44
PROVIDERS: Visit Provider Physician Assistant
DX: M54.16 Radiculopathy, lumbar region (principal)
CPT/HCPCS: 73502; 99202

== ENCOUNTER 2025-01-17 09:32 | Outpatient (AMB) | payer MEDICARE, MEDICAID, SELFPAY ==
--- NOTE | 2025-01-17 09:35 | MHC.OFFVIS ---
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 Patient reports off and on since March. She mentions that her pain is on the lateral aspect of the hip and moves down to her knee area and it shots down to her knee. Patient notices that her pain is worse when she is sitting down, bending over and turning her body. Patient has tried topical cream and Tylenol with no relief. 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 Fermin is a 54-year-old female who presents for evaluation of left hip pain. When asking her to describe the location of pain the patient points to the left buttock, lower back, lateral aspect of the hip down the anterior thigh to the knee. She denies any injury or trauma but reports the pain waxes and wanes since March of this year. Her pain worsens with sitting, bending and twisting. Patient has tried topical cream and Tylenol with no relief. [facility] Medical History Fibromyalgia Migraines Neck mass Anxiety GERD (gastroesophageal reflux disease) TMJ (temporomandibular joint syndrome) Carpal tunnel syndrome of left wrist Gastritis Fatty liver disease, nonalcoholic Hypothyroid Kidney stone delivery delivered Cholecystectomy planned HTN (hypertension) Surgical History Hx of tubal ligation Hx of section History of cholecystectomy Social History (Updated 01/17/25 @ 09:57 by Bushra Tong) Alcohol intake: current Alcohol intake frequency: does not drink Patient Tobacco Use Status: Former Tobacco user Current occupational status: unemployed Current occupation: right hand dominant Review of Systems Const All systems reviewed & are unremarkable except as noted in HPI and below Physical Exam Vital Signs: BMI result Body Mass Index 25.5 Const General: cooperative, healthy appearing and no acute distress Resp Effort & Inspection: normal respiratory effort and able to speak in complete sentences Extrem Other: Left hip: Full hip ROM in all planes: denies groin pain with range of motion. No tenderness to palpation over the greater trochanteric bursa. 4/5 strength with resisted hip flexion, knee extension, abduction, and abduction. Able to perform straight leg raise with reproduction of symptoms. Psych Appearance: grossly normal Mental Status: mental status grossly normal Attitude: cooperative Assessment & Plan Assessment & Plan (1) Lumbar back pain with radiculopathy affecting left lower extremity: Code(s): M54.16 - Radiculopathy, lumbar region Category: Medical Plan Ms. Fermin is a 54-year-old female who presents for evaluation of left hip pain. When asking her to describe the location of pain the patient points to the left buttock, lower back, lateral aspect of the hip down the anterior thigh to the knee. She denies any injury or trauma but reports the pain waxes and wanes since March of this year. Her pain worsens with sitting, bending and twisting. Patient has tried topical cream and Tylenol with no relief. While in the office today, we discussed physical therapy and anti-inflammatory use to manage her symptoms. Patient is willing to attend physical therapy and an order has been placed at this time. In regards to anti-inflammatories the patient reports that she is unable to take NSAIDs due to them causing UTIs and was told to avoid them. I have recommended evaluation and treatment by Dr. Hernandez for left low back pain affecting the left lower extremity. Follow up with Orthopedics will be PRN, sooner if needed. X-rays of the left hip which were obtained while in the office today and were reviewed by me, Emily Watson PA-C, revealed no acute fracture or dislocation. Orders: Orders XR hip LT min 2V Today M25.559 - Pain in unspecified hip Coding Level of Care Code New Pt Level 3 (87022) Diagnoses Lumbar back pain with radiculopathy affecting left lower extremity M54.16
[2025-01-17 09:36] VITALS: BMI 25.5
--- OUTSIDE RECORDS SUMMARY | 2025-01-17 10:06 | XMS_ITS | Encounter Summary ---
Author Organization [employer] Address [address] [place] [address] Care Team Providers Care Metal Bumper Name Role Phone Rick Conn MD Primary Care Provider [phone] Encounter Details Date Type Department Care Team (Late Contact Info) Description 03/04/2024 Nurse Triage Adult Medicine [address] [phone] Rick Conn MD [address] [place] [address] Social History Tobacco Use Types Packs/Day Years Used Date Smoking Tobacco: Former Cigarettes 0.5 Q uit: 02/27/1989 Smokeless Tobacco: Former Alcohol [...] Encounters Date Type Department Care Team (Late Contact Info) Description 01/21/2025 1:00 PM EST Office Visit Adult Medicine [address] [phone] Sesar Klein PA [address] [place] [address] 05/09/2025 2:50 PM EDT Office Visit Gastroenterology - [address] [facility] [address] [place] [phone] Graciela Adamson MD [address] [facility] [address] [place] [address] documented as of this encounter Visit Diagnoses Not on filedocumented in this encounter Care Teams Metal Bumper Relationship Specialty Start Date End Date Rick Conn MD [address] [place] [phone] PCP - General Internal Medicine 12/08/14 documented as of this encounter
--- OUTSIDE RECORDS SUMMARY | 2025-01-17 10:06 | XMS_ITS | Clinical Summary ---
Author Organization [facility] [address] [place] [address] [place] [address] Phone Care Team Providers Care Enamel Finisher Name Role Phone Rick Conn MD Primary Care Provider [phone] Allergies Active Allergy Reactions Criticality Noted Date Comments Doxycycline 03/01/2017 Ibuprofen 05/23/2023 Burning with urination Penicillins Rash 10/26/2010 Medications azelastine (ASTELIN) 137 mcg (0.1 %) nasal spray 2 Sprays by Each Nare route 2 times daily. 3 Active LORazepam (ATIVAN) 1 mg tablet Take 1 Tablet by mouth as needed. 4 Active omeprazole (PriLOSEC) [address] capsule TAKE 1 CAPSULE BY MOUTH EVERY DAY 4 Active sertraline (ZOLOFT) 100 mg tablet Take 1 Tablet by mouth daily. 0 Active zolpidem (AMBIEN) 10 mg tablet Take 1 Tab by mouth at bedtime as needed. Active cholecalciferol (VITAMIN D-3) 50 mcg (2,000 unit) tablet Take 1 tablet (2,000 Units total) by mouth 1 (one) time each day. 90 tablet 1 5 Active fluticasone propionate (FLONASE) 50 mcg/actuation nasal spray Administer 2 sprays into each nostril 1 (one) time each day. Shake gently. Before first use, prime pump. After use, clean tip and replace cap. 16 g 5 5 07/19/19 26 Active meloxicam (MOBIC) 7.5 mg tablet TAKE 1 TABLET BY MOUTH EVERY DAY 90 tablet 1 5 Active levothyroxine (SYNTHROID, LEVOTHROID) 25 mcg tablet TAKE 1 TABLET BY MOUTH EVERY DAY 90 tablet 1 5 Active ondansetron (ZOFRAN) 4 mg tablet TAKE 1 TABLET BY MOUTH EVERY 12 HOURS NEEDED FOR NAUSEA. 180 tablet 1 5 Active SUMAtriptan (IMITREX) 100 mg tablet Take 1 tablet (100 mg total) by mouth 1 (one) time if needed for migraine for up to 27 doses. 9 tablet 2 5 Active lisinopriL (PRINIVIL,ZESTR IL) 20 mg tablet Take 1 tablet (20 mg total) by mouth 1 (one) time each day. 90 tablet 1 5 Active Active Problems Problem Noted Date Diagnosed Date [...] week. Patient follows with Dr Kauffman at [facility] Immunizations Immunization Administration Dates Next Due Influenza trivalent, with preservative (Fluzone; Afluria) 6mo and older 11/03/2019,03/28/2019,12/25/2017,2017,11/08/2012,2011,11/02/2010,0 11/25/2009 Tdap Tetanus diptheria acell ular pertussis (Boostrix; Adacel) 7yo and older 11/25/2020,10/26/2010 Zoster recombinant (Shingrix ) 19yo and older 01/05/2023,10/13/2022 Surgical History Surgery Date Site/Laterality Comments CHOLECYSTECTOMY PROCEDURE: HISTORICAL CHOLECYSTECTOMY; COMMENT: 1990 SECTION PROCEDURE: HISTORICAL DELIVERY; COMMENT: x2 TUBAL LIGATION PROCEDURE: HISTORICAL TUBAL LIGATION ESOPHAGOGASTRODUODENOSCOPY 04/18/2014 PROCEDURE: ID ESOPHAGOGASTRODUODENOSCOPY TRANSORAL DIAGNOSTIC; COMMENT: normal OTHER SURGICAL HISTORY PROCEDURE: MAMMOGRAM; COMMENT: 12/21/16: Normal ESOPHAGOGASTRODUODENOSCOPY 2020 PROCEDURE: ID EGD TRANSORAL BIOPSY SINGLE/MULTIPLE; COMMENT: Dr. Adamson [...] 0.5 Q uit: 02/27/1989 Smokeless Tobacco: Former Tobacco Cessation:Counseling Given: Not Answered Alcohol Use Standard Drinks/Week Comments Yes 0 (1 standard drink = 0.6 oz pur e alcohol) Housing Instability Answer Date Recorde d Are you worried that in the next 2 months you may not have stable housing? No 07/14/2024 Food Access & Nutrition Answer Date Rec orded Do you have access to a vari ety of food including fruits and vegetables? Yes 07/14/2024 Access to Healthcare Answer Date Record ed Within the last 3 months, neida blum many times did you visit the emergency department for your medical care? 0 07/14/2024 Health Literacy Answer Date Recorded How often do you need to hav e someone help you when you read instructions, pamphlets, or other written material from your doctor or pharmacy? Never 07/14/2024 Caregiver: How often do you need to have someone help you when you read instructions, pamphlets, or other written material from your doctor or pharmacy? Not on file 07/14/2024 Financial Risk Answer Date Recorded How hard is it for you to pa y for the very basics like food, housing, medical care, and air conditioning / heating? Not very hard 07/14/2024 Transportation Answer Date Recorded Has the lack of transportati on kept you from meetings, work, or from getting things needed for daily living? No Has the lack of transportati on kept you from medical appointments or from getting medications? No 07/14/2024 Social Isolation Answer Date Recorded How often do you feel lonely or isolated from th ose around you? Never 07/14/2024 Food Risk Answer Date Recorded Within the past 12 months we worried whether our food would run out before we got money to buy more. Sometimes true 025 Within the past 12 months th e food we bought just didn't last and we didn't have money to get more. Never true 07/14/2024 Dependent Care Answer Date Recorded Do you need help finding or paying for care for your loved ones. For example, early childhood education worker or elderly care for an older adult? No 07/14/2024 Education Answer Date Recorded Do you think completing more education or training, like finishing a GED, going to college, or learning a trade, would be helpful for you? No 07/14/2024 Employment and Income Answer Date Recor ded During the last four weeks, have you been actively looking for work? No 07/14/2024 Living Situation Answer Date Recorded What is your living situation? Unrecognized valu e 07/14/2024 Comments No Sex and Gender Information Value Date Recorded Sex Assigned at Not on file Legal Sex Female 1:56 PM EST Gender Identity Not on file Sexual Orientation Not on file Obstetrics History Last Filed Vital Signs Vital Sign Reading Time Taken Comments Blood Pressure 128/76 09/17/2024 2:47 PM EDT Pulse 89 09/17/2024 2:47 PM EDT Temperature 36.1 C (97 F) 09/17/2024 2:47 PM EDT Respiratory Rate 14 09/17/2024 2:47 PM EDT Oxygen Saturation 97% 09/17/2024 2:47 PM EDT Inhaled Oxygen Concentration - - Weight 62.3 kg (137 lb 4.8 oz) 09/17/2024 2:47 P M EDT Height 153.7 cm (5' 0.5 ) 09/17/2024 2:47 PM EDT Body Mass Index 26.37 09/17/2024 2:47 PM EDT Plan of Treatment Upcoming Encounters Date Type Department Care Team (Late st Contact Info) Description 01/21/2025 1:00 PM EST Office Visit Adult Medicine [address] [phone] Sesar Klein PA [address] [place] [phone] 05/09/2025 2:50 PM EDT Office Visit Gastroenterology - [address] [phone] Graciela Adamson MD [address] [facility] [address] [place] [address] Health Maintenance Due Date Last Done Comments Breast Cancer Screening 1968 Hepatitis B Vaccines (1 of 3 - 19+ 3-dose series) 12/30/1987 Pneumococcal Vaccine: 50+ Years (1 of 1 - PCV) 2018 Medicare Annual Wellness Visit 02/05/2022 COVID-19 Vaccine (3 - season) 2024 05/30/2020, 05/09/2020 Influenza Vaccine (#1) 2024 , 03/28/2019, 12/25/2017, Additional history exists Cervical Cancer Screening: Pap Smear 07/12/2025 07/12/2022, 07/12/2022 Social Influencers of Health Screening 07/14/2025 07/14/2024 Hypertension/CHF/CAD Annual BMP Blood Test 07/16/2025 07/16/2024, 09/25/2023, 09/25/2023 Cholesterol Screening (Lipid Panel) 07/16/2029 07/16/2024, 09/25/2023, 09/25/2023 DTaP,Tdap,and Td Vaccines (3 - Td or Tdap) 11/25/2030 11/25/2020, 10/26/2010 Colorectal Cancer Screening: Colonoscopy 09/04/2031 09/03/2021 RSV Immunization Adult Patients (1 - 1-dose 75+ series) 12/30/2043 Zoster Vaccines Completed 01/05/2023, 10/13/2022 HIV Screening Completed 09/06/2023, 09/06/2023 Hepatitis C Screening Completed 09/06/2023 Depression Screening Completed 07/14/2024 HIB Vaccines Aged Out No longer eligi [...] patient's age to complete this topic Meningococcal B Vaccine Aged Out No l onger eligible based on patient's age to complete this topic RSV Immunization Patients Under 20 months Aged Out No longer eligible based on patient's age to complete this topic Varicella Vaccines Aged Out No longer eligible based on patient's age to complete this topic Procedures Procedure Name Priority Date/Time Associated Diagnosis Comments COMPREHENSIVE METABOLIC PANEL Routine 07/16/2024 9:36 AM EDT Primary hypertension Prediabetes Fatty liver disease, nonalcoholic LIPID PANEL WITH REFLEX TO DIRECT LDL Routine 07/16/2024 9:36 AM EDT High cholesterol HEPATITIS C SCREENING Routine 09/06/2023 HIV SCREENING Routine 09/06/2023 PAP SMEAR Routine 07/12/2022 COLONOSCOPY Routine 09/03/2021 from Last 3 Months or Most Recently Relevant to Health Maintenance Results * (ABNORMAL) Lipid panel with reflex to direct LDL (07/16/2024 9:36 AM EDT) Cholesterol 176 0 - 200 mg/dL LAB CHEMISTRY METHOD 07/16/2024 1:23 PM EDT [facility] Triglycerides 170(H) 0 - 150 mg/dL LAB CHEMISTRY METHOD 07/16/2024 1:23 PM EDT [facility] HDL 50 >=40 mg/dL LAB CHEMISTRY METHOD 07/16/2024 1:23 PM EDT [facility] LDL Calculated 92 0 - 100 mg/dL LAB CHEMISTRY METHOD 07/16/2024 1:23 PM EDT [facility] VLDL Cholesterol Angel 34 mg/dL LAB CHEMISTRY METHOD 07/16/2024 1:23 PM EDT [facility] Non HDL Chol. (LDL+VLDL) 126 <145 mg/dL LAB CHEMISTRY METHOD 07/16/2024 1:23 PM T [facility] Chol/HDL Ratio 3.5 0.0 - 4.4 LAB CHEMISTRY METHOD 07/16/2024 1:23 PM T [facility] Blood Venous blood specimen / Unknown Venipuncture / Unknown 07/16/2024 9:36 AM EDT 07/16/2024 9:36 AM EDT us Rick Conn MD LAB BLOOD ORDERABLES Final Resu lt [facility] [address] [place] [address], * Comprehensive metabolic panel (07/16/2024 9:36 AM EDT) Sodium 142 133 - 145 mmol/L LAB CHEMISTRY METHOD 07/16/2024 1:23 PM [facility] Potassium 4.0 3.5 - 5.5 mmol/L LAB CHEMISTRY METHOD 07/16/2024 1:23 PM [facility] Chloride 108 96 - 110 mmol/L LAB CHEMISTRY METHOD 07/16/2024 1:23 PM [facility] CO2 28 21 - 32 mmol/L LAB CHEMISTRY METHOD 07/16/2024 1:23 PM [facility] Anion Gap 6 3 - 11 LAB CHEMISTRY METHOD 07/16/2024 1:23 PM [facility] Glucose 100 70 - 100 mg/dL LAB CHEMISTRY METHOD 07/16/2024 1:23 PM [facility] BUN 10 5 - 25 mg/dL LAB CHEMISTRY METHOD 07/16/2024 1:23 PM [facility] Creatinine 0.72 0.50 - 1.10 mg/dL LAB CHEMISTRY METHOD 07/16/2024 1:23 PM [facility] eGFR 99 >=60 mL/min/1. 73m2 LAB CHEMISTRY METHOD 07/16/2024 1:23 PM [facility] Comment:Calculation based on the Chronic Kidney Disease Epidemiology Collaboration (CKD-EPI) equation refit without adjustment for race. BUN/Creatinine Ratio 13.9 LAB CHEMISTRY METHOD 07/16/2024 1:23 PM [facility] Calcium 9.5 8.5 - 10.5 mg/dL LAB CHEMISTRY METHOD 07/16/2024 1:23 PM [facility] AST (SGOT) 14 10 - 42 unit/L LAB CHEMISTRY METHOD 07/16/2024 1:23 PM [facility] ALT (SGPT) 26 10 - 60 unit/L LAB CHEMISTRY METHOD 07/16/2024 1:23 PM [facility] Alkaline Phosphatase 94 42 - 121 unit/L LAB CHEMISTRY METHOD 07/16/2024 1:23 PM [facility] Total Protein 6.9 6.0 - 8.0 g/dL LAB CHEMISTRY METHOD 07/16/2024 1:23 PM [facility] Albumin 4.1 3.2 - 5.0 g/dL LAB CHEMISTRY METHOD 07/16/2024 1:23 PM [facility] Total Bilirubin 0.6 0.0 - 1.4 mg/dL LAB CHEMISTRY METHOD 07/16/2024 1:23 PM [facility] Blood Venous blood specimen / Unknown Venipuncture / Unknown 07/16/2024 9:36 AM EDT 07/16/2024 9:36 AM EDT us Rick Conn MD LAB BLOOD ORDERABLES Final Resu lt [facility] [address] [place] [address], * HIV Screening (09/06/2023) HIV Screening abstracted Historical Provider HEALTH MAINTENANCE Final Result * Hepatitis C Screening (09/06/2023) Hepatitis C Screening abstracted Historical Provider MD HEALTH MAINTENANCE Final Result * Pap Smear (07/12/2022) Pap smear Abstracted ,negative [facility] Provider HEALTH MAINTENANCE Final Result * Colonoscopy (09/03/2021) Colonoscopy No interpreta tion,abstr acted Anatomical Region Laterality Modality Other Historical Provider HEALTH MAINTENANCE Final Result from Last 3 Months or Most Recently Relevant to Health [place] [address] MEDICAID - [place] [facility] MEDICARE ADVANTAGE on file MEDICARE Care Teams Enamel Finisher Relationship Specialty Start Date End Date Rick Conn MD [address] [place] [phone] PCP - General Internal Medicine 12/08/14
--- OUTSIDE RECORDS SUMMARY | 2025-01-17 10:06 | XMS_ITS ---
Author Name [facility] Organization Unknown Care Team Organization Name Specialty Phone Email Start Date End Da te [employer] 10/17/2024 01/08/2025
--- OUTSIDE RECORDS SUMMARY | 2025-01-17 10:06 | XMS_ITS | Clinical Summary ---
Author Organization [facility] Address [address] [facility] [address] [place] [phone] Phone Care Team Providers Care Fly Worker Name Role Phone Pcp, Unknown Primary Care Provider Unavailabl e Social History Tobacco Use Types Packs/Day Years Used Date Smoking Tobacco: Never Assessed Education Answer Date Recorded Are you interested in more education? Not on hamida e 10/09/2024 Are you concerned about learning? Not on file 10/09/2024 No 10/09/2024 No 10/09/2024 Digital Access Answer Date Recorded No 10/09/2024 No 10/09/2024 Reliable internet access at home? Not on file 10/09/2024 Device with a working camera? Not on file Comments Unknown Sex and Gender Information Value Date Recorded Sex Assigned at Not on file Legal Sex Female 3:41 PM EDT Gender Identity Not on file Sexual Orientation Not on file Plan of Treatment Upcoming Encounters Date Type Department Care Team (Late st Contact Info) Description 02/11/2025 10:10 AM EST Office Visit [facility] Rheumatology [address] [place] [address] [place] [address] Carolin Hi MD, MPH [address] [facility], [address] [place] [address] [email or web address] Health Maintenance Due Date Last Done Comments Adult Td,Tdap Booster 1968 LIPID PANEL 1968 DEPRESSION SCREENING 1980 SMOKING Hx and SMOKELESS TOB ACCO SCREENING 1981 HEPATITIS C SCREENING 1986 HIV ONE-TIME SCREENING (18-6 5 YEARS) 1986 PAP SMEAR 1989 MAMMOGRAM 2008 COLOGUARD 2013 COLONOSCOPY 2013 COLORECTAL CANCER SCREENING 2013 FIT TEST 2013 FOBT 2013 SIGMOIDOSCOPY 2013 VIRTUAL COLONOSCOPY 2013 PNEUMOCOCCAL VACCINES (50+ y ears) (1 of 1 - PCV) 2018 ZOSTER VACCINES (1 of 2) 2018 INFLUENZA VACCINE (#1) 2024 COVID-19 VACCINE (1 - 2024-2 6 season) 2024 RSV VACCINE (1 - 1-dose 75+ series) 12/30/2043 HEPATITIS A VACCINES Aged Out No long er eligible based on patient's age to complete this topic HIB VACCINES Aged Out No longer eligi ble based on patient's age to complete this topic MENINGOCOCCAL VACCINES (ACWY) Aged Out No longer eligible based on patient's age to complete this topic MENINGOCOCCAL VACCINES (B) Aged Out N o longer eligible based on patient's age to complete this topic Medical Devices Not on file Insurance [employer] PPO MEDICARE REPLACEMENT [address] MEDICARE PART A & B [facility] MEDICARE REPLACEMENT Member Subscriber Plan / Payer (Ef fective 2022-Present) Name:ColonMichelleElena Relation to Subscriber:Self Name:Michelle Ferminsol Payer ID:[id number] ([facility]) Type:Medicare Address: [address] MEDICARE PART A & B [employer] PPO MEDICARE REPLACEMENT [place] [id number] MEDICARE PART A & B [facility] [place] [address] [facility] MEDICARE REPLACEMENT HEALTH MEDICARE PART A & B [facility] [place] [address] [employer] PPO MEDICARE REPLACEMENT MEDICARE PART A & B [employer] P[employer] MEDICARE REPLACEMENT MEDICARE PART A & B Care Teams Fly Worker Relationship Specialty Start Date End Date Pcp, Unknown PCP - General 09/13/22 Additional Source Comments The information contained in this document represents components of the legal health record. It is not the complete legal health record.[facility]
== END 2025-01-17 10:17 | disposition home or self-care (01) ==
LOC: HO.HOS 09:33
PROVIDERS: PCP Internal Medicine; Visit Provider Physician Assistant
DX: M54.16 Radiculopathy, lumbar region (principal)
CPT/HCPCS: 99203

== ENCOUNTER → 2025-01-17 09:35 | Outpatient (BNV) | payer MEDICARE, MEDICAID, SELFPAY | PROVIDERS: Visit Provider Radiology Diagnostic Radiology | DX: M25.552 Pain in left hip (principal) | CPT/HCPCS: 73502 ==